=== PATIENT | male | born 1950 | race Caucasian/White ===

== ENCOUNTER 2019-11-27 13:56 | Inpatient (IN) | payer MEDICAID ==
[~2019-11-27] VITALS: Ht 167.6 cm; Wt 75.3 kg
--- NOTE | 2019-11-27 14:27 | NUR ---
Patient to ER bed 04 to gown for evaluation. Side rails up.
--- NOTE | 2019-11-27 14:28 | NUR ---
Patient brought in by ambulance from [facility] to the ED d/t abnormal labs. Denied any chest pain or shortness of breath. Denied fevers, chills, nausea, or vomiting. Patient is alert and oriented x2, respirations even and unlabored, speaking in full sentences, and ambulating with a steady gait. VSS, pain level 0/10. Informed of approximate wait time. Instructed to notify ED staff for any changes in condition or worsening of symptoms. Patient verbalized understanding.
--- NOTE | 2019-11-27 14:30 | NUR ---
ER Dr. Vinson at bedside giving discharge instructions to the patient.
[2019-11-27] MEDS ORDERED: NACL 0.9% 1,000 ML IV ONE (14:45)
[2019-11-27 16:12] LABS: BASOPHILS % (AUTO) 0.1 % (0.0-2.0); EOSINOPHILS # (AUTO) 0.1 K/uL (0.0-0.4); EOSINOPHILS % (AUTO) 0.3 % (0.0-4.0); HEMATOCRIT 28.9 % (36-54); HEMOGLOBIN 9.5 g/dL (14.0-18.0); LYMPHOCYTES # (AUTO) 1.8 K/uL (1.0-5.5); LYMPHOCYTES % (AUTO) 8.7 % (20.5-51.5); MEAN CORPUSCULAR HEMOGLOBIN 30 pg (27-31); MEAN CORPUSCULAR HGB CONC 33 % (32-36); MEAN CORPUSCULAR VOLUME 91 fL (79.0-98.0); MONOCYTES % (AUTO) 9.5 % (1.7-9.3); PLATELET COUNT (AUTO) 590 K/uL (130-430); RED BLOOD CELL COUNT(AUTO) 3.19 MIL/uL (4.2-6.2); RED CELL DISTRIBUTION WIDTH 16.2 % (9.0-15.0); WHITE BLOOD COUNT (AUTO) 20.9 K/uL (4.8-10.8)
[2019-11-27 16:24] LABS: CALCIUM 8.7 mg/dL (8.4-11.0); CREATININE 0.97 mg/dL (0.55-1.30); POTASSIUM 4.1 mmol/L (3.5-5.1)
[2019-11-27 16:30] LABS: ALBUMIN 1.7 g/dL (3.4-4.8); INR 1.7 (0.80-1.20); PROTHROMBIN TIME 16.9 SECS (9.5-12.5); TOTAL BILIRUBIN 0.5 mg/dL (0.0-1.0)
[2019-11-27 16:41] LABS: NEUTROPHILS % (AUTO) 81.4 % (40.0-70.0)
--- NOTE | 2019-11-27 16:41 | NUR ---
# 20 gauge angiocath placed to Right IJ ultrasound-guided by Dr. Vinson. Use of asceptic technique. Opsite placed over site. Blood return noted. Flushed with 10 cc of normal saline. No evidence of infiltration noted. Patient tolerated well.
[2019-11-27] MEDS ORDERED: cefTRIAXone 1 GM in D5W 50 ML IV ONE (16:45)
--- NOTE | 2019-11-27 16:50 | NUR ---
# 16 FR In and Out catheter with use of sterile technique. Immediate return of 60 ml dark yellow slightly cloudy urine noted. Urine sample collected and sent to lab. Pt tolerated procedure well. Patient unable to toilet self.
--- NOTE | 2019-11-27 16:51 | NUR ---
ECG done at bedside as ordered by Dr. Vinson. Patient tolerated the procedure well. Report given to
--- NOTE | 2019-11-27 16:57 | NUR ---
Urine specimen collected and dropped off at the lab.
[2019-11-27 17:22] LABS: BILIRUBIN,URINE NEGATIVE (NEGATIVE); BLOOD, URINE 3+ (NEGATIVE); CLARITY/URINE CLOUDY (CLEAR); COLOR,URINE ORANGE (YELLOW); GLUCOSE,URINE NEGATIVE (NEGATIVE); KETONES,URINE NEGATIVE (NEGATIVE); LEUKOCYTE ESTERASE ,URINE 3+ (NEGATIVE); NITRITE, URINE POSITIVE (NEGATIVE); PH,URINE 8.5 (5.0-8.0); PROTEIN URINE 3+ (NEGATIVE)
--- NOTE | 2019-11-27 17:27 | NUR ---
Administered Rocephine 1gm IVPB as ordered by Dr. Vinson. Patient tolerated the medications well. See eMAR for details.
[2019-11-27] MEDS ORDERED: cefTRIAXone 1 GM VIAL ONE (17:32)
--- NOTE | 2019-11-27 17:45 | NUR ---
Received admitting orders from Dr. Aguila.
[2019-11-27] MEDS ORDERED: POTA20TA83 PO (18:10)
[2019-11-27] MEDS ORDERED: MULT-1117 PO (18:10)
[2019-11-27] MEDS ORDERED: THIA100T73 PO (18:10)
[2019-11-27] MEDS ORDERED: MOM PO (18:10)
[2019-11-27] MEDS ORDERED: BISA-79 RC (18:10)
[2019-11-27] MEDS ORDERED: PHEN-726 PO (18:10)
[2019-11-27] MEDS ORDERED: OSCD500 PO (18:10)
[2019-11-27] MEDS ORDERED: LIP40 PO (18:10)
[2019-11-27] MEDS ORDERED: FER300L PO (18:10)
[2019-11-27] MEDS ORDERED: ASCO500C18 PO (18:10)
[2019-11-27] MEDS ORDERED: FLEETMO RC (18:10)
[2019-11-27] MEDS ORDERED: METO50TA7 PO (18:10)
[2019-11-27] MEDS ORDERED: ASPI-1153 PO (18:10)
[2019-11-27] MEDS ORDERED: MIRT15TA7 PO (18:10)
[2019-11-27] MEDS ORDERED: PRO40 PO (18:10)
[2019-11-27] MEDS ORDERED: AMIN30LI2 PO (18:10)
[2019-11-27] MEDS ORDERED: QUET25TA34 PO (18:10)
[2019-11-27] MEDS ORDERED: LEVE500T9 PO (18:10)
[2019-11-27] MEDS ORDERED: RIVA10TA PO (18:10)
[2019-11-27] MEDS ORDERED: BISA-79 PO (18:10)
--- NOTE | 2019-11-27 18:12 | NUR ---
Reconciled meds. Belonging's list done.
[2019-11-27 18:13] LABS: BACTERIA,URINE FEW /HPF (None Seen); RBC,URINE 20-50 /HPF (0-3)
[2019-11-27 18:14] LABS: MUCUS,URINE None Seen /LPF (None Seen)
--- NOTE | 2019-11-27 18:25 | NUR ---
Patient will be admitted to care of Dr. Aguila. Admitted to Medsurg unit. Will go to room 125A. Belongings list completed. Complete and up to date summary report printed. SBAR report given to HENRY Urias over the phone with opportunity for questions.
--- NOTE | 2019-11-27 18:30 | NUR ---
ADMISSION NOTE Received patient from ER via ivanna, received report from PALMA FIGUEROA. Patient admitted with diagnosis of SEPSIS/UTI. Patient oriented to hospital routine, call light, toileting and safety-patient verbalized understanding.
[2019-11-27 18:46] VITALS: BP_SYST 100
--- NOTE | 2019-11-27 19:30 | NUR ---
OPENING NOTE RECEIVED CARE OF PT AND SBAR REPORT. PT IS AAOX1, TO PERSON. PT ABLE TO VERBALIZE NEEDS IN [place]. NO S/S OF ACUTE DISTRESS. BREATHING IS UNLABORED TO ROOM AIR. RIGHT IJ IS IN PLACE AND PATENT. PT DENIES PAIN AT THIS TIME. SAFETY AND FALL PRECAUTIONS ARE IN PLACE: BED IS LOCKED IN LOWEST POSITION, SIDE RAILS UP X3, CALL LIGHT IS WITH PT, BED ALARM ON. WILL MONITOR.
[2019-11-27 20:00] VITALS: BP_SYST 102
[2019-11-27] MEDS ORDERED: MINERAL OIL 133 ML ENEMA RC PRN (21:45)
[2019-11-27] MEDS ORDERED: BISACODYL 5 MG TABLET.DR (DULCOLAX) PO PRN (21:45)
[2019-11-27] MEDS ORDERED: MILK OF MAGNESIA 30 ML UDC PO PRN (21:45)
--- NOTE | 2019-11-27 21:47 | NUR ---
PAGED: PAGED ANSWERING SERVICE FOR DR. DWYER I SPOKE WITH KAREN CONTRERAS REASON FOR THIS CALL WAS TO SEND A MESSAGE TO DR. DWYER THAT DR. ANDERSON GAVE ORDERS. ANSLEY FIGUEROA IN CHARGE OF THIS PATIENT SPOKE WITH DR. JUSTIN ANDERSON GAVE ORDERS FOR MR. VELEZ BO. DR. ANDERSON SAID THAT HE IS COVERING DR. DWYER FOR A COUPLE OF HOURS
--- NOTE | 2019-11-27 21:53 | NUR ---
SPOKE TO DR. ANDERSON NEW ORDERS RECEIVED. WILL CARRY OUT.
[2019-11-27 22:00] VITALS: BP_SYST 116
[2019-11-27] MEDS ORDERED: MORPHINE 4 MG/ML INJ. SYRINGE IVP PRN (22:00)
[2019-11-27] MEDS ORDERED: ACETAMINOPHEN 325 MG TABLET PO PRN (22:00)
[2019-11-27] MEDS ORDERED: ONDANSETRON HCL 4 MG/2 ML VIAL IVP PRN (22:00)
[2019-11-27] MEDS: levETIRAcetam 500 MG TABLET PO SCH (23:36)
--- NOTE | 2019-11-27 23:36 | NUR ---
RADHA SCHEDULED RADHA ADMINISTERED. PT TOOK PILL WITH NO PROBLEM.
[2019-11-28] MEDS: HYDROcodone/ACETAMIN 5-325 MG TAB (NORCO/ VICODIN) PO PRN ×3 (00:44→23:08)
--- NOTE | 2019-11-28 00:44 | NUR ---
PAIN/NORCO PT REPORTING MODERATE MOUTH PAIN. NORCO 5-325 MG PO ADMINISTERED ORDERED PRN. MEDICATION AND POTENTIAL SIDE EFFECTS EXPLAINED TO PT. NO S/S OF ACUTE DISTRESS. SAFETY MAINTAINED. WILL MONITOR.
[2019-11-28 02:03] VITALS: BP_SYST 111
--- NOTE | 2019-11-28 04:15 | NUR ---
SLEEPING PT RESTING IN BED WITH EYES CLOSED, APPEARS TO BE SLEEPING. NO S/S OF ACUTE DISTRESS. VISIBLE SYMMETRICAL RISE AND FALL OF CHEST TO ROOM AIR, NO SOB NOTED. NO SIGN OF PAIN OR DISCOMFORT, NO FACIAL GRIMACE. SAFETY PRECAUTIONS ARE IN PLACE. WILL CONT TO MONITOR.
--- NOTE | 2019-11-28 06:01 | NUR ---
INCONTINENCE CARE PT INCONTINENT OF BOWELS AND BLADDER. INCONTINENCE CARE RENDERED WITH ASSISTANCE FROM WILLIAM JACKSON. PT REPOSITIONED FOR COMFORT. PT GIVEN WATER PER REQUEST. ASPIRATION PRECAUTIONS IN PLACE. NO S/S OF ACUTE DISTRESS. SAFETY PRECAUTIONS ARE IN PLACE. WILL MONITOR.
--- NOTE | 2019-11-28 06:29 | NUR ---
CLOSING NOTE PT IS AWAKE AND CONFUSED. PT ABLE TO VERBALIZE NEEDS IN [place]. NO S/S OF ACUTE DISTRESS. BREATHING IS UNLABORED TO ROOM AIR. RIGHT IJ IS IN PLACE AND PATENT. PT DENIES PAIN AT THIS TIME. SAFETY AND FALL PRECAUTIONS ARE IN PLACE: BED IS LOCKED IN LOWEST POSITION, SIDE RAILS UP X3, CALL LIGHT IS WITH PT, BED ALARM ON. WILL ENDORSE TO DAY SHIFT RN.
[2019-11-28] MEDS ORDERED: MINERAL OIL 133 ML ENEMA RC PRN (07:18)
--- NOTE | 2019-11-28 08:00 | NUR ---
received awake and in no c/o discomfort.vss resp even and unlabored.on ra sats 97%.malay speaking mainly but able to make needs known.incontinent of urine and changed and repositioned.set up for breakfast.continue to monitor call ramírez in place
[2019-11-28] MEDS: FERROUS SULFATE 300 MG/5 ML UDC PO SCH ×2 (08:26→20:58)
[2019-11-28] MEDS: MULTIVITAMINS TAB 1 TABLET PO SCH (08:26)
[2019-11-28] MEDS: ASPIRIN 81 MG TABLET(ECOTRIN) PO SCH (08:27)
[2019-11-28] MEDS: ASCORBIC ACID 500 MG TABLET PO SCH (08:27)
[2019-11-28] MEDS: POTASSIUM CHLORIDE 20 MEQ TAB.PRT.SR PO SCH ×2 (08:27→20:58)
[2019-11-28] MEDS: CALCIUM CARBONATE/VITAMIN D3 1 TAB TABLET PO SCH (08:27)
[2019-11-28] MEDS: THIAMINE HCL 100 MG TABLET PO SCH (08:27)
[2019-11-28] MEDS: METOPROLOL SUCCINATE 50 MG TAB.SR.24H (TOPROL XL) PO SCH (08:28)
[2019-11-28] MEDS: PANTOPRAZOLE SODIUM 40 MG TAB PO SCH (08:28)
[2019-11-28] MEDS: ATORVASTATIN 20 MG TABLET PO SCH (08:28)
[2019-11-28] MEDS: levETIRAcetam 500 MG TABLET PO SCH ×2 (08:33→20:58)
--- NOTE | 2019-11-28 08:47 | NUR ---
Nutrition Update Jackson Scale 14 noted. Pt admitted for sepsis, UTI. Diet: regular BMI: 28.1 kg/m2 RD to follow per nutrition care standards.
[2019-11-28] MEDS ORDERED: CALCIUM CARBONATE/VITAMIN D3 1 TAB TABLET PO SCH (09:00)
[2019-11-28] MEDS ORDERED: RIVAROXABAN 10 MG TABLET PO SCH (09:00)
[2019-11-28 12:46] VITALS: BP_SYST 100
[2019-11-28] MEDS ORDERED: PHENAZOPYRIDINE HCL 100 MG TABLET PO ONE (13:00)
[2019-11-28] MEDS ORDERED: BISACODYL 5 MG TABLET.DR (DULCOLAX) PO SCH (14:30)
--- NOTE | 2019-11-28 14:45 | NUR ---
CONSULTATION PAGED REQUESTING MD: DR. DWYER CONSULTING MD: Claudia JOHNSON REASON: SEPSIS SPOKE WITH: BINA [phone] FAXED FACESHEET TO: [phone]
--- NOTE | 2019-11-28 15:00 | NUR ---
received lab call bld cx results gram cocci clusters and dr chidi hamilton.pt remains in no distress and repositioned in bed q2h.made aware needs urine sample for test and explained will cath if cant get.call ramírez in place continue to monitor
--- NOTE | 2019-11-28 15:28 | NUR ---
PAGED DR. DWYER
[2019-11-28 16:00] VITALS: BP_SYST 106
[2019-11-28] MEDS ORDERED: VANCOMYCIN HCL 1 GM/NS PREMIX 250 ML IV ONE (16:30)
[2019-11-28] MEDS: cefTRIAXone 1 GM in D5W 50 ML IV SCH (16:51)
--- NOTE | 2019-11-28 17:47 | NUR ---
order received for abx to start vanco and given.pt remains in no c/o discomfort vss.taking diet well.resp even and unlabored.continue to monitor.
[2019-11-28] MEDS: WARFARIN SODIUM 5 MG TABLET PO SCH (18:08)
--- NOTE | 2019-11-28 19:12 | NUR ---
report to second shift supervisor rn given
--- NOTE | 2019-11-28 19:30 | NUR ---
OPENING NOTE PT IS AWAKE AND CONFUSED. PT ABLE TO VERBALIZE NEEDS IN [place]. NO S/S OF ACUTE DISTRESS. BREATHING IS UNLABORED TO ROOM AIR. PT DENIES PAIN AT THIS TIME. SAFETY AND FALL PRECAUTIONS ARE IN PLACE: BED IS LOCKED IN LOWEST POSITION, SIDE RAILS UP X3, CALL LIGHT IS WITH PT, BED ALARM ON. WILL CONTINUE TO MONITOR.
[2019-11-28 20:00] VITALS: BP_SYST 112
[2019-11-28] MEDS: QUEtiapine FUMARATE 25 MG TABLET PO SCH (20:58)
[2019-11-28] MEDS: PHENAZOPYRIDINE HCL 100 MG TABLET PO SCH (20:58)
[2019-11-28] MEDS: MIRTAZAPINE 15 MG TABLET PO SCH (20:58)
--- NOTE | 2019-11-28 21:00 | NUR ---
MED PASS SCHEDULED MEDICATIONS GIVEN ORDERED. PT TOOK PILLS WITH NO PROBLEMS. ASPIRATION PRECAUTIONS MAINTAINED. WILL MONITOR.
--- NOTE | 2019-11-28 23:08 | NUR ---
PAIN/NORCO PT REPORTING MODERATE LEG PAIN. NORCO 5-325 MG PO ADMINISTERED ORDERED PRN. MEDICATION AND POTENTIAL SIDE EFFECTS EXPLAINED TO PT. NO S/S OF ACUTE DISTRESS. SAFETY MAINTAINED. WILL MONITOR.
[2019-11-29 00:56] VITALS: BP_SYST 114
--- NOTE | 2019-11-29 02:30 | NUR ---
SLEEPING PT RESTING IN BED WITH EYES CLOSED. NO S/S OF ACUTE DISTRESS. VISIBLE SYMMETRICAL RISE AND FALL OF CHEST TO ROOM AIR, NO SOB NOTED. NO SIGN OF PAIN OR DISCOMFORT, NO FACIAL GRIMACE. SAFETY PRECAUTIONS ARE IN PLACE. WILL CONT TO MONITOR.
--- NOTE | 2019-11-29 04:13 | NUR ---
WOUND CARE WOUND CARE DONE. PT TOLERATED WELL.
[2019-11-29 06:27] LABS: INR 1.7 (0.80-1.20); PROTHROMBIN TIME 16.8 SECS (9.5-12.5)
[2019-11-29 06:30] LABS: ALBUMIN 1.5 g/dL (3.4-4.8); CALCIUM 8.5 mg/dL (8.4-11.0); CREATININE 0.84 mg/dL (0.55-1.30); POTASSIUM 3.7 mmol/L (3.5-5.1); TOTAL BILIRUBIN 0.4 mg/dL (0.0-1.0)
[2019-11-29 06:55] LABS: HEMOGLOBIN 8.4 g/dL (14.0-18.0); MEAN CORPUSCULAR HEMOGLOBIN 30 pg (27-31)
--- NOTE | 2019-11-29 06:58 | NUR ---
CLOSING NOTE PT IS AWAKE AND CONFUSED. PT ABLE TO VERBALIZE NEEDS IN [place]. NO S/S OF ACUTE DISTRESS. BREATHING IS UNLABORED TO ROOM AIR. RIGHT IJ IS IN PLACE AND PATENT. PT DENIES PAIN AT THIS TIME. SAFETY AND FALL PRECAUTIONS ARE IN PLACE: BED IS LOCKED IN LOWEST POSITION, SIDE RAILS UP X3, CALL LIGHT IS WITH PT, BED ALARM ON. WILL ENDORSE TO DAY SHIFT RN.
[2019-11-29 07:07] LABS: HEMATOCRIT 25.8 % (36-54); MEAN CORPUSCULAR HGB CONC 32 % (32-36); MEAN CORPUSCULAR VOLUME 92 fL (79.0-98.0); PLATELET COUNT (AUTO) 525 K/uL (130-430); RED BLOOD CELL COUNT(AUTO) 2.82 MIL/uL (4.2-6.2); WHITE BLOOD COUNT (AUTO) 18.4 K/uL (4.8-10.8)
[2019-11-29 07:32] LABS: ATYPICAL LYMPHOCYTES % 0 % (0-0); BAND % (MANUAL) 0 % (0-6); BASOPHILS % (MANUAL) 0 % (0-2); EOSINOPHILS % (MANUAL) 0 % (0-7); FREE T4 (FREE THYROXINE) 1.5 ng/dl (0.8-1.5); LYMPHOCYTES % (MANUAL) 10 % (20-46); MONOCYTES % (MANUAL) 5 % (0-11); THYROID STIMULATING HORMONE 3.23 uIu/mL (0.36-3.74)
--- NOTE | 2019-11-29 08:00 | NUR ---
AWAKE ALERT U\PULLED IJ LINE RIGHT NECK
[2019-11-29] MEDS: THIAMINE HCL 100 MG TABLET PO SCH (09:08)
[2019-11-29] MEDS: CALCIUM CARBONATE/VITAMIN D3 1 TAB TABLET PO SCH (09:09)
[2019-11-29] MEDS: FERROUS SULFATE 300 MG/5 ML UDC PO SCH ×2 (09:09→20:53)
[2019-11-29] MEDS: AZITHROMYCIN 250 MG TABLET PO SCH (09:09)
[2019-11-29] MEDS: levETIRAcetam 500 MG TABLET PO SCH ×2 (09:09→20:53)
[2019-11-29] MEDS: METOPROLOL SUCCINATE 50 MG TAB.SR.24H (TOPROL XL) PO SCH (09:10)
[2019-11-29] MEDS: MULTIVITAMINS TAB 1 TABLET PO SCH (09:10)
[2019-11-29] MEDS: ASCORBIC ACID 500 MG TABLET PO SCH (09:10)
[2019-11-29] MEDS: POTASSIUM CHLORIDE 20 MEQ TAB.PRT.SR PO SCH ×2 (09:10→20:53)
[2019-11-29] MEDS: ATORVASTATIN 20 MG TABLET PO SCH (09:11)
[2019-11-29] MEDS: ASPIRIN 81 MG TABLET(ECOTRIN) PO SCH (09:11)
[2019-11-29] MEDS: PANTOPRAZOLE SODIUM 40 MG TAB PO SCH (09:11)
[2019-11-29] MEDS: PHENAZOPYRIDINE HCL 100 MG TABLET PO SCH ×2 (09:12→20:52)
--- NOTE | 2019-11-29 10:00 | NUR ---
SEEN BY DR. DWYER AND DR. LLOYD WITH ORDERS TO PUT PICK LINE
[2019-11-29] MEDS ORDERED: VANCOMYCIN HCL 1,000 MG in NS 250 ML IV SCH (11:30)
--- NOTE | 2019-11-29 12:00 | NUR ---
DR. LLOYD WITH ORDERS TO PUT CENTRAL LINE NOT A PICC LINE DUE TO POSITIVE COCCI IN THE BLOOD
--- NOTE | 2019-11-29 12:00 | NUR ---
Discharge Plan Assessment completed. RAIL SWITCH OPERATOR noted patient is Serbian speaking and confused. Phoned [facility], . Patient has been there about one month and the plan is for patient to return. Phoned rachel's sister, Olga Mariscal [phone]. She stated the plan is for patient to return to the SNF and would like to be notified prior to transfer. Gis Software Engineer/Case Management/Automatic Trimming Sewer will remain available.
[2019-11-29 12:24] VITALS: BP_SYST 97
--- NOTE | 2019-11-29 12:30 | NUR ---
WOUND EVALUATION: Wound Consult received from Dr. Louis. Thank you, Dr. Louis, for the consult. Patient received in a Daina Bed with a mattress, awake, alert, and oriented. Patient is unable to turn independently. Jackson Score is a 14. Past Medical History: Peripheral Vascular Disease, Acute Respiratory Failure, CHF, COPD with exacerbation, Atrial Fibrillation, CAD, Hypertension, Diabetes Mellitus, history of Alcohol abuse, stent surgery. Recent Labs: WBC 18.4, RBC 2.82, hemoglobin 8.4, hematocrit 25.8, sodium 126, BUN 21, creatinine 0.8, GFR 97, AST 82, ALT 88, alkaline phosphatase 253, albumin 1.5, PT 16.8, INR 1.7. Microbiology: Blood culture results 4 in progress. MRSA screen results in progress. Urine culture results in progress. Intrinsic factors that delay wound healing: Peripheral Vascular Disease, Acute Respiratory Failure, CHF, COPD with exacerbation, CAD, Diabetes Mellitus. Extrinsic factors that delay wound healing: Decreased mobility. Wound Assessment: 1. Right Buttock near Ischium: Unstageable pressure ulcer, present on admission. Wound bed has 90% johnson tissue, 10% pink tissue. No odor, no drainage. Periwound and surrounding tissue has brown scaly skin. Inferior to wound has linear black discolorations in the skin folds. Wound measures 1.0 cm x 1.0 cm x 0.1 cm. Recommend: Cleanse wound with normal saline. Apply moisture barrier cream to niyah-wound. Apply Venelex ointment to wound bed. Cover with foam dressing. Perform wound care daily, and as needed for dressing soiling or dislodgement. 2. Right Mid Lateral Lower Extremity: Unstageable pressure ulcer, present on admission. Wound bed has 85% yellow tissue, 15% pink tissue. No odor, scant yellow purulent drainage. Periwound and surrounding tissue has brown scaly skin and scar tissue. Wound measures 8.0 cm x 2.8 cm. 3. Right Lateral Foot: Unstageable pressure ulcer, present on admission. Wound bed has 100% brown eschar. No odor, scant yellow purulent drainage. Periwound intact. Extremity also has dark discoloration with white discoloration. Multiple dry scabs present on extremity. Wound measures 1.2 cm x 3.0 cm. Recommend: Cleanse wounds with normal saline. Apply moisture barrier cream to niyah-wounds. Apply Venelex ointment to wound beds. Cover with foam dressings. Perform wound care daily, and as needed for dressing soiling or dislodgement. 4. Left Lateral Foot: Blanchable erythema, present on admission. Extremity also has dark discoloration with white discoloration. Multiple dry scabs present on extremity 5. Left Lateral Heel: Blanchable erythema, present on admission. Extremity also has dark discoloration with white discoloration. Multiple dry scabs present on extremity Recommend: Elevate, offload and float involved areas with pillows at all times. Also recommend: Reposition patient side to side only every 2 hours with pillow support and off-load pressure areas with pillows for pressure re-distribution. Offload, elevate and float bilateral heels with pillows. Place a pillow in between knees and ankles. Perform skin care and monitor skin integrity Q shift. Use moisture barrier cream on buttocks and other moisture susceptible areas QID and as needed for soiling. Low air-loss therapy was initiated.
[2019-11-29 15:18] LABS: INR 2.3 (0.80-1.20); PROTHROMBIN TIME 22.9 SECS (9.5-12.5)
[2019-11-29 15:52] VITALS: BP_SYST 136
--- NOTE | 2019-11-29 16:11 | NUR ---
Dietitian Recommendations * Recommend regular diet w/ Ensure Enlive BID, Panfilo BID (supplements provide an additional ~880 kcal/day, 45 gm protein/day) TAVIA MASON Please refer to Nutrition Assessment for details. Addendum: 11/29/19 at [address] Amended: Links added.
--- NOTE | 2019-11-29 16:16 | NUR ---
AWAKE ALERT ASKING FOR DINNER
[2019-11-29 16:17] VITALS: BP_SYST 105
--- NOTE | 2019-11-29 16:29 | NUR ---
GABINO LOUISE WANTS A CENTRAL LINE INSTEAD OF PICC OR MIDLINE DR. AGARWAL WAS CALLED
--- NOTE | 2019-11-29 16:30 | NUR ---
CONSULTATION PAGED/CALLED Reason for Consultation: [] CENTRAL LINE PLACEMENT Person Who was Notified: [] GUSTAVO Consulting Physician: [] DR AGARWAL Account Review Specialist Specialty: [] GEN SURGEON Ordering Physician: [] DR CHRISTO LLOYD
--- NOTE | 2019-11-29 17:35 | NUR ---
CONSULTATION PAGED/CALLED Reason for Consultation: [] CENTRAL LINE PLACEMENT Person Who was Notified: [] ERIN Consulting Physician: [] LIVIA ANDUJAR Lubricating Engineer Specialty: [] GENERAL SURGEON Ordering Physician: [] DR CHRISTO LLOYD
[2019-11-29] MEDS: WARFARIN SODIUM 5 MG TABLET PO SCH (17:41)
--- NOTE | 2019-11-29 17:50 | NUR ---
DR. AGARWAL CALLED NOT ABLE TO PUT CENTRAL LINE MD NICHOLE CALLED PER DR. AGARWAL
--- NOTE | 2019-11-29 19:20 | NUR ---
OPENING NOTE Received patient awake, resting in bed, no s/sx of distress. Nonlabored breathing on room air. No IV access. Bed is locked in lowest position, side rails up 3x, bed alarm on and call light w/in reach.
[2019-11-29 20:00] VITALS: BP_SYST 114
--- NOTE | 2019-11-29 20:16 | NUR ---
Fever Vital signs taken and patient has fever of 100.2 oral will administered Tylenol as ordered.
[2019-11-29] MEDS: QUEtiapine FUMARATE 25 MG TABLET PO SCH (20:52)
[2019-11-29] MEDS: MIRTAZAPINE 15 MG TABLET PO SCH (20:53)
--- NOTE | 2019-11-29 21:07 | NUR ---
Medications / Tylenol Assisted nurse retail assistant in providing bed bath and linen change. Administered due medications and also Tylenol for fever. Medications were crushed and mixed in applesauce, he was cooperative and swallowed. Applied cooling measures, ice packs, under arms, will follow up.
--- NOTE | 2019-11-29 21:56 | NUR ---
Reassess temp Rechecked oral temp and it decreased to 99.7.
[2019-11-29 23:36] VITALS: BP_SYST 116
--- NOTE | 2019-11-30 00:23 | NUR ---
RN rounds Patient resting w/ eyes closed; easily aroused. He was turned and repositioned for comfort. Safety and seizure precuations in place.
[2019-11-30] MEDS: VANCOMYCIN HCL 1,000 MG in NS 250 ML IV SCH ×2 (01:00→01:39)
[2019-11-30] MEDS: cefTRIAXone 1 GM in D5W 50 ML IV SCH ×2 (01:41→18:44)
--- NOTE | 2019-11-30 02:10 | NUR ---
RN rounds Patient resting w/ eyes closed, no s/sx of distress. He was turned and repositioned for comfort. Safety and seizure precautions in place, call light w/in reach.
--- NOTE | 2019-11-30 04:15 | NUR ---
Patient care / Dressing change Patient resting quietly w/ eyes closed, no grimacing or s/sx of distress. Assisted nurse occupational therapist assistants with niyah-care. Patient turned and repositioned. Patient did not state he had pain. I was planning on dressing change and asked him do you have pain and then he replied "yes everywhere". Administered [place] for moderate pain as ordered. Dressing change to right lower extremity, right foot and right heel done (see MST intervention charting).
[2019-11-30] MEDS: HYDROcodone/ACETAMIN 5-325 MG TAB (NORCO/ VICODIN) PO PRN ×2 (04:31→11:27)
[2019-11-30 06:45] LABS: PROTHROMBIN TIME 43.5 SECS (9.5-12.5)
[2019-11-30 06:46] LABS: INR 4.4 (0.80-1.20)
--- NOTE | 2019-11-30 07:04 | NUR ---
Critical Lab: elevated PT/INR Received call from Sherly supervisor dental laboratory. PT 43.5, INR 4.[address] Louis. awaiting call back.
--- NOTE | 2019-11-30 07:06 | NUR ---
Closing Note Patient resting in bed, eyes closed, no s/sx of distress. Nonlabored breathing on room air. No IV access. Bed is locked in lowest position, side rails up 3x, bed alarm on and call light w/in reach. Seizure precautions maintained. Needs met throughout shift, will endorse care to incoming nurse.
[2019-11-30 08:00] VITALS: BP_SYST 95
--- NOTE | 2019-11-30 08:00 | NUR ---
initial notes rec patient awake and with periods of confusion. no iv line at this time. resp easy and unlabored. no osb noted. bed to the lowest position and side rails up and locked. call light within reached. awaiting for picc line nurse to start picc line or mid line on patient.
[2019-11-30] MEDS ORDERED: VANCOMYCIN HCL 1,000 MG in NS 250 ML IV SCH (10:00)
[2019-11-30] MEDS: POTASSIUM CHLORIDE 20 MEQ TAB.PRT.SR PO SCH ×3 (11:08→21:33)
[2019-11-30] MEDS: ASCORBIC ACID 500 MG TABLET PO SCH (11:08)
[2019-11-30] MEDS: AZITHROMYCIN 250 MG TABLET PO SCH (11:09)
[2019-11-30] MEDS: levETIRAcetam 500 MG TABLET PO SCH ×3 (11:09→21:27)
[2019-11-30] MEDS: CALCIUM CARBONATE/VITAMIN D3 1 TAB TABLET PO SCH (11:09)
[2019-11-30] MEDS: ASPIRIN 81 MG TABLET(ECOTRIN) PO SCH (11:09)
[2019-11-30] MEDS: PANTOPRAZOLE SODIUM 40 MG TAB PO SCH (11:09)
[2019-11-30] MEDS: THIAMINE HCL 100 MG TABLET PO SCH (11:09)
[2019-11-30] MEDS: METOPROLOL SUCCINATE 50 MG TAB.SR.24H (TOPROL XL) PO SCH (11:12)
[2019-11-30] MEDS: FERROUS SULFATE 300 MG/5 ML UDC PO SCH ×3 (11:13→21:27)
[2019-11-30] MEDS: ATORVASTATIN 20 MG TABLET PO SCH (11:13)
[2019-11-30] MEDS: PHENAZOPYRIDINE HCL 100 MG TABLET PO SCH ×3 (11:24→21:33)
[2019-11-30] MEDS: BALSAM PERU/CASTOR OIL 60 GM OINT...G. TP SCH (11:24)
[2019-11-30] MEDS: MULTIVITAMINS TAB 1 TABLET PO SCH (11:24)
--- NOTE | 2019-11-30 12:00 | NUR ---
rounds due meds were given crushed and given with apple sauce. no sob noted.
--- NOTE | 2019-11-30 12:00 | NUR ---
rounds picc line nurse came and was able to insert a midline on the r upper arm. no infiltration noted. no sob noted.
[2019-11-30 12:18] VITALS: BP_SYST 95
[2019-11-30] MEDS ORDERED: OSCD500 PO (12:24)
[2019-11-30] MEDS ORDERED: CALC-1094 PO (12:29)
--- NOTE | 2019-11-30 15:32 | NUR ---
Spoke to Dr. Prosper Acosta regarding urine culture MDRO/PROTEUS MIRABILIS urine no need for isolation
[2019-11-30 16:09] VITALS: BP_SYST 98
--- NOTE | 2019-11-30 18:00 | NUR ---
closing notes sleeping at this time. no sob noted. iv abx in porgress and michelle well. turned repositioned for comfort. call light within reached. bed to the lowest position and side rails up and locked. call light withn reached.
--- NOTE | 2019-11-30 19:10 | NUR ---
CHANGE OF SHIFT; pt. asleep when received, awakened when checked, denies any discomfort, speaks little mohawk, otherwise speaks french. pt dinner tray at bedside, offered to eat and does not want to eat at this time. on fall risk precautions. call light within reach. no distress noted.
[2019-11-30 20:00] VITALS: BP_SYST 99
--- NOTE | 2019-11-30 20:00 | NUR ---
NOTES; pt. left via bed for CT scan of abdomen. pt. quite disoriented and confused.
--- NOTE | 2019-11-30 20:30 | NUR ---
NOTES: pt. came back from CT scan in stable condition.
[2019-11-30] MEDS: QUEtiapine FUMARATE 25 MG TABLET PO SCH ×2 (21:00→21:27)
[2019-11-30] MEDS: MIRTAZAPINE 15 MG TABLET PO SCH ×2 (21:00→21:27)
--- NOTE | 2019-11-30 22:00 | NUR ---
NOTES; prepared his medications scheduled, crushed it as endorsed but refused to take it . pt. keeps talking and his room mate has complained about the noise.
--- NOTE | 2019-11-30 22:25 | NUR ---
NOTES: called Dr. Louis, informed about result on blood culture for Gm Pos cocci, pt. refused all po meds scheduled and Vancomycin needs adjustment on time since it was given late today @ 4 pm (schedule every 12 hours). OK to change time on IV Vancomycin. Addendum: 11/30/19 at [address] RN charge nurse Mikie pelayo.
--- NOTE | 2019-11-30 23:58 | NUR ---
NOTES: pt. checked, sleeping. continue to monitor. on fall risk precautions.
[2019-12-01 00:32] VITALS: BP_SYST 109
--- NOTE | 2019-12-01 02:00 | NUR ---
NOTES: pt. incontinent of urine, niyah care and repositioned. condition observed.
[2019-12-01] MEDS: VANCOMYCIN HCL 1,000 MG in NS 250 ML IV SCH ×2 (04:15→18:12)
--- NOTE | 2019-12-01 04:15 | NUR ---
NOTES: due IV antibiotic started and regulated. pt. sleeping soundly. continue to monitor.
--- NOTE | 2019-12-01 05:45 | NUR ---
NOTES: due am care/niyah care done, pt. incontinent. went back to sleep after. IV antibiotic still in progress.
[2019-12-01 06:27] LABS: INR 6.9 (0.80-1.20); PROTHROMBIN TIME 67.4 SECS (9.5-12.5)
--- NOTE | 2019-12-01 06:45 | NUR ---
CLOSING NOTES; lab called for critical result of PT/INR @ 0625 , result called in to Dr. Louis @ 0639 with order and noted. for further care and assistance. on fall risk precautions. call ight at bedside. will endorse to day shift.
[2019-12-01] MEDS ORDERED: PHYTONADIONE 10 MG/ML AMP SUBCUT ONE (07:00)
--- NOTE | 2019-12-01 07:32 | NUR ---
OPENING NOTE Patient resting in the bed with eyes closed. No acute distress. Skin warm and dry to touch. Midline intact to SUSANA, no redness, no swelling, covered with clean and dry transparent dressing. Safety measure maintained. Bed locked in low position, padded side rails up, bed alarm on. Call light within reached. Will continue to monitor.
[2019-12-01 07:45] VITALS: BP_SYST 115
[2019-12-01] MEDS: AZITHROMYCIN 250 MG TABLET PO SCH (08:24)
[2019-12-01] MEDS: PANTOPRAZOLE SODIUM 40 MG TAB PO SCH (08:24)
[2019-12-01] MEDS: FERROUS SULFATE 300 MG/5 ML UDC PO SCH ×2 (08:24→23:06)
[2019-12-01] MEDS: levETIRAcetam 500 MG TABLET PO SCH ×2 (08:24→23:05)
[2019-12-01] MEDS: ASPIRIN 81 MG TABLET(ECOTRIN) PO SCH (08:24)
[2019-12-01] MEDS: POTASSIUM CHLORIDE 20 MEQ TAB.PRT.SR PO SCH ×2 (08:26→23:06)
[2019-12-01] MEDS: CALCIUM CARBONATE/VITAMIN D3 1 TAB TABLET PO SCH (08:26)
[2019-12-01] MEDS: METOPROLOL SUCCINATE 50 MG TAB.SR.24H (TOPROL XL) PO SCH (08:26)
[2019-12-01] MEDS: ATORVASTATIN 20 MG TABLET PO SCH (08:26)
[2019-12-01] MEDS: MULTIVITAMINS TAB 1 TABLET PO SCH (08:26)
[2019-12-01] MEDS: THIAMINE HCL 100 MG TABLET PO SCH (08:27)
--- NOTE | 2019-12-01 08:32 | NUR ---
AM SCHEDULE MED GIVEN, TOLERATED WELL.
[2019-12-01] MEDS: ASCORBIC ACID 500 MG TABLET PO SCH (08:33)
[2019-12-01] MEDS: PHENAZOPYRIDINE HCL 100 MG TABLET PO SCH ×2 (08:47→23:06)
[2019-12-01] MEDS: BALSAM PERU/CASTOR OIL 60 GM OINT...G. TP SCH (08:47)
--- NOTE | 2019-12-01 11:00 | NUR ---
ROUND Patient resting in the bed with eyes closed. No acute distress. Safety measure maintained. Call light within reached. Bed locked in low position, side rails up, bed alarm on. Continue to monitor.
--- NOTE | 2019-12-01 12:20 | NUR ---
LUNCH Patient sitting in upright position and eating lunch. Aspiration precaution maintained. Safety measure maintained. Call light within reached. Continue to monitor.
[2019-12-01 12:29] VITALS: BP_SYST 97
--- NOTE | 2019-12-01 14:05 | NUR ---
ROUND Patient resting in the bed. No acute distress. Safety measure maintained. Call light within reached. Bed locked in low position, side rails up, bed alarm on. Continue to monitor.
--- NOTE | 2019-12-01 16:22 | NUR ---
SLEEPING Patient sleeping in the bed. No acute distress. Safety measure maintained. Call light within reached. Bed locked in low position, side rails up, bed alarm on. Continue to monitor.
[2019-12-01 16:35] VITALS: BP_SYST 107
[2019-12-01] MEDS: cefTRIAXone 1 GM in D5W 50 ML IV SCH (17:22)
--- NOTE | 2019-12-01 17:31 | NUR ---
Nutrition F/U RD reviewed pt's current EMR record including diet Hx, physician notes, nursing notes, pertinent labs/meds/procedures, care trends, and care activity. Admission Dx: Sepsis, UTI PMH: PVD, acute respiratory failure, CHF, COPD w/ exacerbation, atr fibr, CAD, HTN, DM, alcohol abuse per physician notes Current Diet Order/Nutrition Support: Regular, Ensure Enlive BID, Panfilo BID x2 days Subjective Info: Pt seen resting in bed, seemingly confused. Evidence of Ensure Enlive 100% consumed on bedside table. Bedscale wt taken: 167#; difference of 7# compared to admission wt -- may be inaccurate. RN reported that pt is tolerating diet well, no pending plans/procedures. Current diet remains appropriate, though pt is not yet meeting optimal nutritional needs. Skin Integrity Comment: Jackson scale: 15; per Therapist Respiratory note 11/29/19: 1. Right Buttock near Ischium: Unstageable pressure ulcer, present on admission. 2. Right Mid Lateral Lower Extremity: Unstageable pressure ulcer, present on admission. 3. Right Lateral Foot: Unstageable pressure ulcer, present on admission. 4. Left Lateral Foot: Blanchable erythema, present on admission. 5. Left Lateral Heel: Blanchable erythema, present on admission. Current % PO 18% average x2 meals, x1 refusal. Estimated Energy Expenditure (kcals/day) 4081-6246 kcal/day (30-35 kcal/kg CBW for sepsis, wound healing) Estimated Protein Required (g/day) 119-158 gm/day (1.5-2 gm/kg CBW for wound healing) Estimated Fluid Required (l/day) Per physician d/t CHF Problem/Etiology/Signs/Symptoms Increased nutritional needs related to metabolic demands as evidenced by estimated nutritional requirements for wound healing and elevated WBC. *ongoing Expected Outcomes/Goals - Monitor appetite and PO intakes w/ goal of pt meeting at least 75% of estimated nutritional needs, labs trending WNL, normal GI function, and skin integrity/wt maintenance Dietitian Recommendations * Recommend continuing regular diet w/ Ensure Enlive BID, Panfilo BID (supplements provide an additional ~880 kcal/day, 45 gm protein/day) * Encourage increase PO intakes Follow Up High Risk: F/U in 2-3 days
--- NOTE | 2019-12-01 17:34 | NUR ---
Dietitian Recommendations * Recommend continuing regular diet w/ Ensure Enlive BID, Panfilo BID (supplements provide an additional ~880 kcal/day, 45 gm protein/day) * Encourage increase PO intakes LP, RD Please refer to Nutrition F/U for details.
--- NOTE | 2019-12-01 17:58 | NUR ---
SEEN AND EXAMINED BY DR. DWYER'S LIME MIXER TENDER,SRINIVASA YOUNGER WITH ORDER RECEIVED.
--- NOTE | 2019-12-01 18:54 | NUR ---
CLOSING NOTE Patient resting in the bed with eyes closed. No acute distress. Skin warm and dry to touch. Midline intact to SUSANA, no redness, no swelling, covered with clean and dry transparent dressing. Infusing Vancomycin at this time. All needs met. No seizure activity noted during shift. Safety measure maintained. Bed locked in low position, padded side rails up, bed alarm on. Call light within reached. Will endorse to night nurse.
[2019-12-01 19:40] VITALS: BP_SYST 105
--- NOTE | 2019-12-01 19:40 | NUR ---
INITIAL NOTES PATIENT IS LAYING IN BED AND STABLE. NO S/S OF RESPIRATORY DISTRESS NOTED. CALL LIGHT IN REACH. BED IS LOCKED, ALARMED, AND AT THE LOWEST POSITION. FALL, SAFETY, ASPIRATION, CONTACT, AND RESPIRATORY PRECAUTIONS WILL BE PLACE THROUGHOUT THE SHIFT. PATIENT UNSUCCESSFULLY DEMONSTRATES USAGE OF CALL LIGHT AT THIS TIME. WILL CONTINUE TO MONITOR FREQUENTLY. PLAN OF CARE IS DISCUSSED AT THIS TIME WITH THE PATIENT. PATIENT VERBALIZES NO PAIN.
--- NOTE | 2019-12-01 21:40 | NUR ---
ROUNDING PATIENT IS SLEEPING. PATIENT IS STABLE. NO S/S OF RESPIRATORY DISTRESS NOTED. CALL LIGHT IN REACH. BED IS LOCKED AND AT THE LOWEST POSITION. WILL CONTINUE TO MONITOR.
[2019-12-01] MEDS: QUEtiapine FUMARATE 25 MG TABLET PO SCH (23:05)
[2019-12-01] MEDS: MIRTAZAPINE 15 MG TABLET PO SCH (23:06)
--- NOTE | 2019-12-01 23:40 | NUR ---
ROUNDING PATIENT HAD A URINE AND BOWEL MOVEMENT AT THIS TIME. PATIENT IS INCONTINENT. LINENS WERE CHANGED AND PATIENT WAS CLEANED. PATIENT WAS REPOSITION FOR COMFORT. BED IS LOCKED, ALARMED, AND AT THE LOWEST POSITION. WILL CONTINUE TO MONITOR.
[2019-12-02 00:24] VITALS: BP_SYST 104
[2019-12-02 01:40] VITALS: BP_SYST 110
--- NOTE | 2019-12-02 01:46 | NUR ---
DR. LLOYD BY BEDSIDE DR. LLOYD BY BEDSIDE. AWARE OF SEVERE SEPSIS RISK. NO NEW ORDERS GIVEN.
[2019-12-02] MEDS: VANCOMYCIN HCL 1,000 MG in NS 250 ML IV SCH ×2 (05:15→18:59)
--- NOTE | 2019-12-02 05:40 | NUR ---
ROUNDING PATIENT IS SLEEPING AND STABLE. NO S/S OF RESPIRATORY DISTRESS. CALL LIGHT IN REACH. BED IS LOCKED, ALARMED, AND AT THE LOWEST POSITION. WILL CONTINUE TO MONITOR.
--- NOTE | 2019-12-02 06:01 | NUR ---
CLOSING NOTES PATIENT WAS CHANGED AND CLEANED AT THIS TIME. PATIENT TOLERATED WELL. PATIENT ASSISTED TO TURN. PATIENT WAS REPOSITION FOR COMFORT. PATIENT REFUSED PILLOW ON THE HEAD. PATIENT IS STABLE AND SHOWS NO S/S OF RESPIRATORY DISTRESS. CALL LIGHT IN REACH. BED IS LOCKED, ALARMED, AND AT THE LOWEST POSITION. FALL, SAFETY, ASPIRATION, AND RESPIRATORY PRECAUTIONS WAS PLACED THROUGHOUT THE SHIFT. WILL CONTINUE TO MONITOR UNTIL SHIFT REPORT IS GIVEN TO AM NURSE BY BEDSIDE. Addendum: 12/02/19 at 0627 by Polina Bernardo RN FALL, SAFETY, ASPIRATION,CONTACT AND RESPIRATORY PRECAUTIONS WAS PLACED THROUGHOUT THE SHIFT.
[2019-12-02 07:23] LABS: BASOPHILS # (AUTO) 0.2 K/uL (0.0-0.2); EOSINOPHILS # (AUTO) 0.1 K/uL (0.0-0.4); EOSINOPHILS % (AUTO) 0.8 % (0.0-4.0); HEMATOCRIT 26.9 % (36-54); HEMOGLOBIN 8.7 g/dL (14.0-18.0); LYMPHOCYTES # (AUTO) 1.6 K/uL (1.0-5.5); LYMPHOCYTES % (AUTO) 9.4 % (20.5-51.5); MEAN CORPUSCULAR HEMOGLOBIN 30 pg (27-31); MEAN CORPUSCULAR HGB CONC 32 % (32-36); MEAN CORPUSCULAR VOLUME 92 fL (79.0-98.0); MONOCYTES # (AUTO) 1.1 K/uL (0.0-1.0); MONOCYTES % (AUTO) 6.6 % (1.7-9.3); NEUTROPHILS # (AUTO) 13.8 K/uL (1.8-7.7); NEUTROPHILS % (AUTO) 82.2 % (40.0-70.0); PLATELET COUNT (AUTO) 687 K/uL (130-430); RED BLOOD CELL COUNT(AUTO) 2.93 MIL/uL (4.2-6.2); RED CELL DISTRIBUTION WIDTH 16.1 % (9.0-15.0); WHITE BLOOD COUNT (AUTO) 16.8 K/uL (4.8-10.8)
[2019-12-02 07:30] LABS: INR 2.4 (0.80-1.20); PROTHROMBIN TIME 23.8 SECS (9.5-12.5)
[2019-12-02 07:50] VITALS: BP_SYST 94
[2019-12-02] MEDS: METOPROLOL SUCCINATE 50 MG TAB.SR.24H (TOPROL XL) PO SCH (09:00)
[2019-12-02] MEDS: FERROUS SULFATE 300 MG/5 ML UDC PO SCH ×2 (10:01→21:00)
[2019-12-02] MEDS: POTASSIUM CHLORIDE 20 MEQ TAB.PRT.SR PO SCH ×2 (10:02→21:24)
[2019-12-02] MEDS: CALCIUM CARBONATE/VITAMIN D3 1 TAB TABLET PO SCH (10:02)
[2019-12-02] MEDS: PANTOPRAZOLE SODIUM 40 MG TAB PO SCH (10:02)
[2019-12-02] MEDS: AZITHROMYCIN 250 MG TABLET PO SCH (10:02)
[2019-12-02] MEDS: PHENAZOPYRIDINE HCL 100 MG TABLET PO SCH ×2 (10:02→21:24)
[2019-12-02] MEDS: ATORVASTATIN 20 MG TABLET PO SCH (10:03)
[2019-12-02] MEDS: ASCORBIC ACID 500 MG TABLET PO SCH (10:03)
[2019-12-02] MEDS: levETIRAcetam 500 MG TABLET PO SCH ×2 (10:03→21:24)
[2019-12-02] MEDS: MULTIVITAMINS TAB 1 TABLET PO SCH (10:03)
[2019-12-02] MEDS: THIAMINE HCL 100 MG TABLET PO SCH (10:03)
[2019-12-02] MEDS: ASPIRIN 81 MG TABLET(ECOTRIN) PO SCH (10:03)
[2019-12-02] MEDS: BALSAM PERU/CASTOR OIL 60 GM OINT...G. TP SCH (10:04)
--- NOTE | 2019-12-02 10:05 | NUR ---
AM SCHEDULE MED GIVEN, TOLERATED WELL.
--- NOTE | 2019-12-02 11:55 | NUR ---
ROUND Patient resting in the bed with eyes closed. No acute distress. Safety measure maintained. Call light within reached. Bed locked in low position, padded side rails up, bed alarm on. Continue to monitor.
[2019-12-02 12:00] VITALS: BP_SYST 98
--- NOTE | 2019-12-02 13:45 | NUR ---
ROUND Patient resting in the bed with eyes closed. No acute distress. Safety measure maintained. Bed locked in low position, padded side rails up, bed alarm on. Call light within reached. Continue to monitor.
--- NOTE | 2019-12-02 15:25 | NUR ---
SLEEPING Patient sleeping in the bed. No acute distress. Safety measure maintained. Bed locked in low position, padded side rails up, bed alarm on. Call light within reached. Continue to monitor.
[2019-12-02 16:00] VITALS: BP_SYST 106
--- NOTE | 2019-12-02 16:43 | NUR ---
PAGED PAGED ERIN OBRIEN AT [phone] SPOKE WITH STEFAN.
[2019-12-02] MEDS: cefTRIAXone 1 GM in D5W 50 ML IV SCH (17:43)
--- NOTE | 2019-12-02 17:50 | NUR ---
ERIN JOHNSON STILL NOT CALL BACK YET Dr. Cheng still not shi back yet regarding the positive blood culture, MRSA. Reviewed the blood culture, Vancomycin is sensitive which is the patient receiving. Know that Dr. Cheng will make round at night. Will endorse to follow up.
[2019-12-02] MEDS ORDERED: WARFARIN SODIUM 1 MG TABLET PO SCH (18:00)
--- NOTE | 2019-12-02 18:59 | NUR ---
CLOSING NOTE Patient resting in the bed with eyes closed. No acute distress. Skin warm and dry to touch. Midline intact to SUSANA, no redness, no swelling, covered with clean and dry transparent dressing. Infusing Vancomycin at this time. All needs met. No seizure activity noted during shift. Safety measure maintained. Bed locked in low position, padded side rails up, bed alarm on. Call light within reached. Dr. Cheng still not called back at this time. Will endorse to night nurse.
[2019-12-02 19:35] VITALS: BP_SYST 113
--- NOTE | 2019-12-02 19:35 | NUR ---
INITIAL NOTES PATIENT IS LAYING IN BED AND STABLE. NO S/S OF RESPIRATORY DISTRESS NOTED. PATIENT UNSUCCESSFULLY DEMONSTRATES USAGE OF CALL LIGHT AT THIS TIME. WILL CONTINUE TO MONITOR FREQUENTLY. BED IS LOCKED, ALARMED, AND AT THE LOWEST POSITION. FALL, SAFETY, ASPIRATION, RESPIRATORY, AND CONTACT PRECAUTIONS WILL BE IN PLACE THROUGHOUT THE SHIFT. WILL CONTINUE TO MONITOR.
--- NOTE | 2019-12-02 20:07 | NUR ---
NIKOS BERNABE IS BY BEDSIDE. EDITOR BOOK MADE AWARE OF MDRO OF URINE AND MRSA OF BLOOD. NO ORDERS GIVEN.
--- NOTE | 2019-12-02 20:30 | NUR ---
DR Breezy LLOYD PAGED TO NOTIFY MRSA IN BLOOD PER PRIMARY RN REQUEST .
--- NOTE | 2019-12-02 21:16 | NUR ---
DR Claudia RAMIRES PAGED AGAIN TO NOTIFY THE MRSA IN BLOOD , PER PRIMARY NURSE REQUEST
[2019-12-02] MEDS: MIRTAZAPINE 15 MG TABLET PO SCH (21:24)
[2019-12-02] MEDS: QUEtiapine FUMARATE 25 MG TABLET PO SCH (21:25)
--- NOTE | 2019-12-02 21:35 | NUR ---
PATIENT REFUSED MEDICATION, FERROUS SULFATE, DESPITE EDUCATIONAL EFFORTS. WILL CONTINUE TO EDUCATE. PATIENT WAS ALSO CLEANED AND REPOSITION AT THIS TIME. CALL LIGHT IN REACH. BED IS LOCKED, ALARMED, AND AT THE LOWEST POSITION. WILL CONTINUE TO MONITOR.
--- NOTE | 2019-12-02 22:07 | NUR ---
PATIENT IS SLEEPING IN BED AND STABLE. NO S/S OF RESPIRATORY DISTRESS NOTED. CALL LIGHT IN REACH. BED IS LOCKED, ALARMED, AND AT THE LOWEST POSITION. WILL CONTINUE TO MONITOR.
--- NOTE | 2019-12-02 22:51 | NUR ---
DR. Breezy LLOYD CALLED BACK DR. Breezy LLOYD MADE AWARE OF MRSA IN BLOOD. NO NEW ORDERS GIVEN.
[2019-12-03 00:12] VITALS: BP_SYST 119
--- NOTE | 2019-12-03 04:07 | NUR ---
WOUND CARE PERFORMED AT THIS TIME. PATIENT IS CHANGED AND CLEANED. PATIENT TOLERATED WELL. PATIENT REPOSITION FOR COMFORT. PATIENT IS STABLE. NO S/S OF RESPIRATORY DISTRESS NOTED. CALL LIGHT IN REACH. BED IS LOCKED, ALARMED, AND AT THE LOWEST POSITION. WILL CONTINUE TO MONITOR UNTIL REPORT IS GIVEN TO AM NURSE BY BEDSIDE.
[2019-12-03] MEDS: VANCOMYCIN HCL 1,000 MG in NS 250 ML IV SCH ×2 (05:14→18:35)
--- NOTE | 2019-12-03 06:07 | NUR ---
CLOSING NOTES PATIENT IS STABLE AND IN BED. NO S/S OF RESPIRATORY DISTRESS NOTED. CALL LIGHT IN REACH. BED IS LOCKED, ALARMED, AND AT THE LOWEST POSITION. CALLED PHARMACY TO CLARIFY VANCO TROUGH AND ADMINISTRATION OF MEDICATION. PHARMACY APPROVED. FALL, SAFETY, ASPIRATION, CONTACT, AND RESPIRATORY PRECAUTIONS HAS BEEN IN PLACE THROUGHOUT THE SHIFT. WILL CONTINUE TO MONITOR UNTIL REPORT IS GIVEN TO AM NURSE BY BEDSIDE.
[2019-12-03 06:19] LABS: INR 1.9 (0.80-1.20)
[2019-12-03 06:40] LABS: ALBUMIN 1.4 g/dL (3.4-4.8); BASOPHILS # (AUTO) 0.1 K/uL (0.0-0.2); BASOPHILS % (AUTO) 0.4 % (0.0-2.0); CALCIUM 8.2 mg/dL (8.4-11.0); CREATININE 0.75 mg/dL (0.55-1.30); EOSINOPHILS # (AUTO) 0.1 K/uL (0.0-0.4); HEMATOCRIT 24.2 % (36-54); HEMOGLOBIN 7.8 g/dL (14.0-18.0); LYMPHOCYTES # (AUTO) 1.7 K/uL (1.0-5.5); LYMPHOCYTES % (AUTO) 11.8 % (20.5-51.5); MEAN CORPUSCULAR HEMOGLOBIN 30 pg (27-31); MEAN CORPUSCULAR HGB CONC 32 % (32-36); MEAN CORPUSCULAR VOLUME 92 fL (79.0-98.0); MONOCYTES % (AUTO) 7.2 % (1.7-9.3); NEUTROPHILS # (AUTO) 11.3 K/uL (1.8-7.7); NEUTROPHILS % (AUTO) 79.6 % (40.0-70.0); PLATELET COUNT (AUTO) 588 K/uL (130-430); POTASSIUM 3.6 mmol/L (3.5-5.1); RED BLOOD CELL COUNT(AUTO) 2.63 MIL/uL (4.2-6.2); RED CELL DISTRIBUTION WIDTH 16.3 % (9.0-15.0); TOTAL BILIRUBIN 0.4 mg/dL (0.0-1.0); WHITE BLOOD COUNT (AUTO) 14.2 K/uL (4.8-10.8)
[2019-12-03] MEDS ORDERED: WARFARIN SODIUM 1 MG TABLET PO SCH (07:30)
--- NOTE | 2019-12-03 08:00 | NUR ---
INITIAL NOTE PT RESTING IN BED, NO ACUTE DISTRESS NOTED, BREATHING EVEN AND UNLABORED. IV SALINE LOCKED. CALL LIGHT WITHIN REACH, BED IN LOW AND LOCKED POSITION WITH BED ALARM ON. ISOLATION PRECAUTIONS IN PLACE.
[2019-12-03] MEDS: PHENAZOPYRIDINE HCL 100 MG TABLET PO SCH ×2 (09:46→20:08)
[2019-12-03] MEDS: FERROUS SULFATE 300 MG/5 ML UDC PO SCH ×2 (09:46→20:16)
[2019-12-03] MEDS: ASPIRIN 81 MG TABLET(ECOTRIN) PO SCH (09:48)
[2019-12-03] MEDS: ASCORBIC ACID 500 MG TABLET PO SCH (09:48)
[2019-12-03] MEDS: THIAMINE HCL 100 MG TABLET PO SCH (09:48)
[2019-12-03] MEDS: AZITHROMYCIN 250 MG TABLET PO SCH (09:48)
[2019-12-03] MEDS: BALSAM PERU/CASTOR OIL 60 GM OINT...G. TP SCH (09:49)
[2019-12-03] MEDS: METOPROLOL SUCCINATE 50 MG TAB.SR.24H (TOPROL XL) PO SCH (09:49)
[2019-12-03] MEDS: MULTIVITAMINS TAB 1 TABLET PO SCH (09:49)
[2019-12-03] MEDS: POTASSIUM CHLORIDE 20 MEQ TAB.PRT.SR PO SCH ×2 (09:49→20:08)
[2019-12-03] MEDS: PANTOPRAZOLE SODIUM 40 MG TAB PO SCH (09:49)
[2019-12-03] MEDS: levETIRAcetam 500 MG TABLET PO SCH ×2 (09:49→20:09)
[2019-12-03] MEDS: CALCIUM CARBONATE/VITAMIN D3 1 TAB TABLET PO SCH (09:49)
[2019-12-03] MEDS: ATORVASTATIN 20 MG TABLET PO SCH (09:49)
--- NOTE | 2019-12-03 10:30 | NUR ---
RN ROUNDS/DR. YULIYA MCDONALD AT BEDSIDE EXAMINING PT. INFORMED MD THAT PT IS MORE CONFUSED AND AGITATED, LACKS ORAL INTAKE AND SPITS UP MEDICATION. NEW ORDERS RECEIVED FOR PSYCH CONSULT, AND CBC, CMP. VERIFIED WITH READ BACK.
--- NOTE | 2019-12-03 10:50 | NUR ---
Psych consult called: for Dr. Diaz, regarding confusion, requested by Dr. Louis, spoke with
--- NOTE | 2019-12-03 10:57 | NUR ---
face sheet faxed to office of Dr. Diaz. [phone]
--- NOTE | 2019-12-03 11:44 | NUR ---
RN ROUNDS/Breezy JOHNSON MD AT BEDSIDE EXAMINING PT. INFORMED MD PT IS MORE CONFUSED AND SPIT OUT MEDICATIONS GIVEN ORALLY. NEW ORDERS PUT IN BY MD, BLOOD CULTURE REPEAT AND CARDIO CONSULT TO R/O ENDOCARDITIS. VERIFIED WITH READ BACK.
--- NOTE | 2019-12-03 11:51 | NUR ---
Cardiac consult called: for Dr. Cleveland, regarding rule out endocarditis, ordered by Breezy Cervantes, spoke with Bam.
[2019-12-03 12:35] VITALS: BP_SYST 106
--- NOTE | 2019-12-03 13:30 | NUR ---
RN ROUNDS PER CHOIR ACCOMPANIST, PT REFUSING TO EAT. ATTEMPTED TO ASSIST FEEDING PT AGAIN, PT REFUSING. WILL REATTEMPT LATER.
--- NOTE | 2019-12-03 15:33 | NUR ---
RN ROUNDS PT RESTING IN BED, NO ACUTE DISTRESS NOTED, BREATHING EVEN AND UNLABORED.
[2019-12-03 16:37] VITALS: BP_SYST 113
[2019-12-03] MEDS: cefTRIAXone 1 GM in D5W 50 ML IV SCH (17:20)
--- NOTE | 2019-12-03 17:30 | NUR ---
RN ROUNDS PT RESTING, NO ACUTE DISTRESS NOTED, BREATHING EVEN AND UNLABORED.
--- NOTE | 2019-12-03 18:00 | NUR ---
WOUND CARE/INCONTINENT PT INCONTINENT OF BOWEL, CHANGED PT. WOUND CARE DONE ON SACRUM. REFER TO [facility] FOR TREATMENT. PT TOLERATED WELL. NO ACUTE DISTRESS NOTED DURING OR AFTER.
[2019-12-03 19:35] VITALS: BP_SYST 119
--- NOTE | 2019-12-03 19:38 | NUR ---
CLOSING NOTE PT RESTING IN BED, NO ACUTE DISTRESS NOTED, BREATHING EVEN AND UNLABORED. CALL LIGHT WITHIN REACH, BED IN LOW AND LOCKED POSITION WITH BED ALARM ON. SEIZURE PADS IN PLACE. ISOLATION PRECAUTIONS IN PLACE. PT CARE ENDORSED TO ROLLS MILL OPERATOR RN.
--- NOTE | 2019-12-03 19:40 | NUR ---
INITIAL NOTES PATIENT IS STABLE AND LAYING IN THE BED. NO S/S OF RESPIRATORY DISTRESS NOTED. CALL LIGHT IN REACH. BED IS LOCKED, ALARMED, AND AT THE LOWEST POSITION. FALL,SAFETY, ASPIRATION, CONTACT, AND RESPIRATORY PRECAUTIONS WILL BE IN PLACE THROUGHOUT THE SHIFT. PLAN OF CARE IS DISCUSSED WITH PATIENT AT THIS TIME. WILL CONTINUE TO MONITOR. Addendum: 12/04/19 at 0446 by Polina Bernardo RN SEIZURE PRECAUTIONS WILL BE IN PLACE THROUGHOUT THE SHIFT
[2019-12-03] MEDS: MIRTAZAPINE 15 MG TABLET PO SCH (20:09)
[2019-12-03] MEDS: QUEtiapine FUMARATE 25 MG TABLET PO SCH (20:09)
--- NOTE | 2019-12-03 20:28 | NUR ---
DR. ROBERSON AT BEDSIDE AT THIS TIME.
--- NOTE | 2019-12-03 20:30 | NUR ---
PATIENT REFUSED WOUND CARE AT THIS TIME. DESPITE EDUCATIONAL EFFORT. WILL CONTINUE TO EDUCATE.
--- NOTE | 2019-12-03 21:40 | NUR ---
PATIENT IS CONFUSED AT THIS TIME. REORIENTED PATIENT. PATIENT IS OTHERWISE STABLE. NO S/S OF RESPIRATORY DISTRESS NOTED. CALL LIGHT IN REACH. BED IS LOCKED, ALARMED, AND AT THE LOWEST POSITION. WILL CONTINUE TO MONITOR.
--- NOTE | 2019-12-03 23:40 | NUR ---
PATIENT IS SLEEPING AND STABLE. NO S/S OF RESPIRATORY DISTRESS NOTED. CALL LIGHT IN REACH. BED IS LOCKED, ALARMED, AND AT THE LOWEST POSITION. WILL CONTINUE TO MONITOR.
[2019-12-04 00:22] VITALS: BP_SYST 106; BP_SYST 113
--- NOTE | 2019-12-04 05:00 | NUR ---
WOUND CARE PREFORMED AT THIS TIME. PATIENT TOLERATED WELL.
[2019-12-04] MEDS: VANCOMYCIN HCL 1,000 MG in NS 250 ML IV SCH (06:09)
[2019-12-04 06:40] LABS: BASOPHILS # (AUTO) 0.1 K/uL (0.0-0.2); BASOPHILS % (AUTO) 0.6 % (0.0-2.0); EOSINOPHILS # (AUTO) 0.1 K/uL (0.0-0.4); EOSINOPHILS % (AUTO) 0.9 % (0.0-4.0); HEMATOCRIT 23.3 % (36-54); HEMOGLOBIN 7.6 g/dL (14.0-18.0); LYMPHOCYTES # (AUTO) 1.7 K/uL (1.0-5.5); MEAN CORPUSCULAR HEMOGLOBIN 30 pg (27-31); MEAN CORPUSCULAR HGB CONC 33 % (32-36); MEAN CORPUSCULAR VOLUME 92 fL (79.0-98.0); MONOCYTES % (AUTO) 6.9 % (1.7-9.3); NEUTROPHILS # (AUTO) 11.3 K/uL (1.8-7.7); NEUTROPHILS % (AUTO) 79.6 % (40.0-70.0); PLATELET COUNT (AUTO) 618 K/uL (130-430); RED BLOOD CELL COUNT(AUTO) 2.54 MIL/uL (4.2-6.2); WHITE BLOOD COUNT (AUTO) 14.2 K/uL (4.8-10.8)
[2019-12-04 06:45] LABS: INR 1.7 (0.80-1.20); PROTHROMBIN TIME 17.2 SECS (9.5-12.5)
--- NOTE | 2019-12-04 07:05 | NUR ---
CLOSING NOTES PATIENT IS LAYING. PATIENT IS STABLE. NO S/S OF RESPIRATORY DISTRESS NOTED. CALL LIGHT IN REACH. BED IS LOCKED, ALARMED, AND AT THE LOWEST POSITION. FALL, SAFETY, ASPIRATION, SEIZURE AND RESPIRATORY PRECAUTIONS HAS BEEN IN PLACE THROUGHOUT THE SHIFT. REPORT GIVEN TO MORNING NURSE.
[2019-12-04 07:22] LABS: ALBUMIN 1.5 g/dL (3.4-4.8); CALCIUM 8.5 mg/dL (8.4-11.0); CREATININE 0.75 mg/dL (0.55-1.30); POTASSIUM 3.3 mmol/L (3.5-5.1); TOTAL BILIRUBIN 0.3 mg/dL (0.0-1.0)
[2019-12-04] MEDS ORDERED: WARFARIN SODIUM 2 MG TABLET PO SCH (07:37)
[2019-12-04] MEDS: ASPIRIN 81 MG TABLET(ECOTRIN) PO SCH (09:00)
[2019-12-04] MEDS: ASCORBIC ACID 500 MG TABLET PO SCH (09:00)
[2019-12-04] MEDS: PHENAZOPYRIDINE HCL 100 MG TABLET PO SCH ×2 (09:00→20:11)
[2019-12-04] MEDS: BALSAM PERU/CASTOR OIL 60 GM OINT...G. TP SCH (09:00)
[2019-12-04] MEDS: levETIRAcetam 500 MG TABLET PO SCH ×2 (09:21→20:11)
[2019-12-04] MEDS: ATORVASTATIN 20 MG TABLET PO SCH (09:22)
[2019-12-04] MEDS: POTASSIUM CHLORIDE 20 MEQ TAB.PRT.SR PO SCH ×2 (09:22→20:11)
[2019-12-04] MEDS: MULTIVITAMINS TAB 1 TABLET PO SCH (09:22)
[2019-12-04] MEDS: THIAMINE HCL 100 MG TABLET PO SCH (09:22)
[2019-12-04] MEDS: CALCIUM CARBONATE/VITAMIN D3 1 TAB TABLET PO SCH (09:23)
[2019-12-04] MEDS: FERROUS SULFATE 300 MG/5 ML UDC PO SCH ×2 (09:28→20:11)
[2019-12-04] MEDS: PANTOPRAZOLE SODIUM 40 MG TAB PO SCH (09:30)
[2019-12-04] MEDS: METOPROLOL SUCCINATE 50 MG TAB.SR.24H (TOPROL XL) PO SCH (09:32)
[2019-12-04 12:20] VITALS: BP_SYST 105
--- NOTE | 2019-12-04 13:50 | NUR ---
Nutrition F/U RD reviewed pt's current EMR record including diet Hx, physician notes, nursing notes, pertinent labs/meds/procedures, care trends, and care activity. Admission Dx: Sepsis, UTI PMH: PVD, acute respiratory failure, CHF, COPD w/ exacerbation, atr fibr, CAD, HTN, DM, alcohol abuse per physician notes Current Diet Order/Nutrition Support: Regular, Ensure Enlive BID, Panfilo BID x5 days Subjective Info: Pt seen resting in bed, seemingly confused. Bedscale wt taken: 173# -- possibly skewed d/t linens. Per EMR, pt seems to be eating less -- 10% average x7 meals. Pt is on remeron -- may help w/ appetite. Skin Integrity Comment: Jackson scale: 12; per Legal Financial Specialist note 11/29/19: 1. Right Buttock near Ischium: Unstageable pressure ulcer, present on admission. 2. Right Mid Lateral Lower Extremity: Unstageable pressure ulcer, present on admission. 3. Right Lateral Foot: Unstageable pressure ulcer, present on admission. 4. Left Lateral Foot: Blanchable erythema, present on admission. 5. Left Lateral Heel: Blanchable erythema, present on admission. Current % PO 10% average x7 meals -- poor/negligible, ongoing Estimated Energy Expenditure (kcals/day) 2208-7823 kcal/day (30-35 kcal/kg CBW for sepsis, wound healing) Estimated Protein Required (g/day) 119-158 gm/day (1.5-2 gm/kg CBW for wound healing) Estimated Fluid Required (l/day) Per physician d/t CHF Problem/Etiology/Signs/Symptoms Increased nutritional needs related to metabolic demands as evidenced by estimated nutritional requirements for wound healing and elevated WBC. *ongoing Expected Outcomes/Goals - Monitor appetite and PO intakes w/ goal of pt meeting at least 75% of estimated nutritional needs, labs trending WNL, normal GI function, and skin integrity/wt maintenance Dietitian Recommendations * Recommend continuing regular diet w/ Ensure Enlive BID, Panfilo BID (supplements provide an additional ~880 kcal/day, 45 gm protein/day) * Encourage increase PO intakes Follow Up High Risk: F/U in 2-3 days
--- NOTE | 2019-12-04 14:15 | NUR ---
Note Received report from Yue FIGUEROA (registry) for continuation of care. Pt now on tele unit - applied by Su FIGUEROA at this time.
[2019-12-04] MEDS: cefTRIAXone 1 GM in D5W 50 ML IV SCH (16:33)
[2019-12-04 16:40] VITALS: BP_SYST 109
--- NOTE | 2019-12-04 18:30 | NUR ---
Note Pt was assisted in eating his dinner. No SOB/resp distress or pain/discomfort noted at this time. Pt was checked on q1' and PRN all shift for needs and care. SUSANA midline intact and patent at this time. No needs noted at this time. Call light within reach. Dressings on lower extremities, intact and clean at this time.
--- NOTE | 2019-12-04 19:30 | NUR ---
OPENING NOTE PT IS AWAKE AND CONFUSED. PT ABLE TO VERBALIZE NEEDS IN GERMAN. NO S/S OF ACUTE DISTRESS. BREATHING IS UNLABORED TO ROOM AIR. PT DENIES PAIN AT THIS TIME. SAFETY AND FALL PRECAUTIONS ARE IN PLACE: BED IS LOCKED IN LOWEST POSITION, SIDE RAILS UP X3, CALL LIGHT IS WITH PT, BED ALARM ON. WILL CONTINUE TO MONITOR.
[2019-12-04 20:00] VITALS: BP_SYST 110
[2019-12-04] MEDS: MIRTAZAPINE 15 MG TABLET PO SCH (20:11)
[2019-12-04] MEDS: QUEtiapine FUMARATE 25 MG TABLET PO SCH (20:11)
[2019-12-04] MEDS: VANCOMYCIN HCL 750 MG/NS 250 ML IV SCH (20:12)
--- NOTE | 2019-12-04 20:12 | NUR ---
MEDICATION PASS SCHEDULED MEDICATIONS ADMINISTERED ORDERED. MEDICATIONS EXPLAINED TO PT, PT CONFUSED. SAFETY, SEIZURE, CONTACT, AND ASPIRATION PRECAUTIONS ARE IN PLACE. WILL CONT TO MONITOR.
[2019-12-05 00:20] VITALS: BP_SYST 111
--- NOTE | 2019-12-05 00:30 | NUR ---
SLEEPING PT APPEARS TO BE SLEEPING IN BED. VISIBLE SYMMETRICAL RISE AND FALL OF CHEST TO ROOM AIR. NO S/S OF ACUTE DISTRESS. PT APPEARS COMFORTABLE. SAFETY, ASPIRATION, CONTACT, AND SEIZURE PRECAUTIONS OBSERVED. WILL MONITOR.
--- NOTE | 2019-12-05 02:45 | NUR ---
RN ROUNDS: PT APPEARS TO BE SLEEPING IN BED. VISIBLE SYMMETRICAL RISE AND FALL OF CHEST TO ROOM AIR. NO S/S OF ACUTE DISTRESS. PT APPEARS COMFORTABLE. SAFETY, ASPIRATION, CONTACT, AND SEIZURE PRECAUTIONS OBSERVED. WILL MONITOR.
--- NOTE | 2019-12-05 04:21 | NUR ---
SLEEPING PT APPEARS TO BE SLEEPING IN BED. VISIBLE SYMMETRICAL RISE AND FALL OF CHEST TO ROOM AIR. NO S/S OF ACUTE DISTRESS. PT APPEARS COMFORTABLE AT THIS TIME. SAFETY, ASPIRATION, CONTACT, AND SEIZURE PRECAUTIONS OBSERVED. WILL MONITOR.
--- NOTE | 2019-12-05 05:00 | NUR ---
INCONTINENCE CARE/WOUND CARE PT INCONTINENT OF BOWELS AND BLADDER. PT CLEANED AND PROVIDED WITH FRESH LINEN. WOUND CARE PERFORMED AT THIS TIME. PATIENT TOLERATED WELL. PHOTOS TAKEN. PT REPOSITIONED FOR COMFORT. SAFETY AND SEIZURE PRECAUTIONS MAINTAINED. WILL MONITOR.
--- NOTE | 2019-12-05 06:53 | NUR ---
CLOSING NOTE PATIENT IS RESTING IN BED, PATIENT IS STABLE. NO S/S OF RESPIRATORY DISTRESS NOTED. CALL LIGHT IN REACH. BED IS LOCKED, ALARMED, AND AT THE LOWEST POSITION. FALL, SAFETY, ASPIRATION, SEIZURE PRECAUTIONS HAVE BEEN IN PLACE THROUGHOUT THE SHIFT. WILL ENDORSE PT CARE TO DAY SHIFT RN.
[2019-12-05 07:14] LABS: INR 1.9 (0.80-1.20)
[2019-12-05 08:00] VITALS: BP_SYST 159
--- NOTE | 2019-12-05 08:00 | NUR ---
Opening note patient resting in bed, a/ox1- reoriented to place, time and event, patient denies pain, attempted to educate him production line welder light system, patient is irritable at this time, PICC line and peripheral IV are patent no s/s infiltration, continuing to monitor patient, bed in lowest position, three side rails up, bed alarm on, bed close to nursing station, fall, aspiration, seizure and isolation precautions in place.
[2019-12-05] MEDS: THIAMINE HCL 100 MG TABLET PO SCH (08:33)
[2019-12-05] MEDS: ASCORBIC ACID 500 MG TABLET PO SCH (08:33)
[2019-12-05] MEDS: MULTIVITAMINS TAB 1 TABLET PO SCH (08:36)
[2019-12-05] MEDS: CALCIUM CARBONATE/VITAMIN D3 1 TAB TABLET PO SCH (08:37)
[2019-12-05] MEDS: PANTOPRAZOLE SODIUM 40 MG TAB PO SCH (08:37)
[2019-12-05] MEDS: levETIRAcetam 500 MG TABLET PO SCH ×2 (08:37→20:21)
[2019-12-05] MEDS: PHENAZOPYRIDINE HCL 100 MG TABLET PO SCH ×2 (08:37→20:22)
[2019-12-05] MEDS: ATORVASTATIN 20 MG TABLET PO SCH (08:37)
[2019-12-05] MEDS: POTASSIUM CHLORIDE 20 MEQ TAB.PRT.SR PO SCH ×2 (08:37→20:19)
[2019-12-05] MEDS: ASPIRIN 81 MG TABLET(ECOTRIN) PO SCH (08:38)
[2019-12-05] MEDS: FERROUS SULFATE 300 MG/5 ML UDC PO SCH ×2 (08:38→20:19)
--- NOTE | 2019-12-05 08:40 | NUR ---
Medication/Dr. Clevleand rounds patient resting in bed, denies pain, able to only answer a few question from Dr. Cleveland. Administered AM scheduled medications to patient, crushed and with applesauce, he tolerated well, gave patient water per his request, aspiration precautions in place, continuing to monitor patient, bed in lowest position, three side rails up, bed alarm on, bed close to nursing station, fall, seizure and isolation precautions in place.
[2019-12-05] MEDS: METOPROLOL SUCCINATE 50 MG TAB.SR.24H (TOPROL XL) PO SCH (08:57)
[2019-12-05] MEDS: BALSAM PERU/CASTOR OIL 60 GM OINT...G. TP SCH (09:00)
[2019-12-05] MEDS: VANCOMYCIN HCL 750 MG/NS 250 ML IV SCH ×2 (09:04→20:24)
--- NOTE | 2019-12-05 09:05 | NUR ---
Medication/Rounds patient resting in bed, shouting for water, gave him water, aspiration precautions in place, IV antibiotic hung and infusing well, PICC line is intact, no s/s infiltration, continuing to monitor patient, bed in lowest position, three side rails up, bed alarm on, bed close to nursing station, fall, seizure and isolation precautions in place.
--- NOTE | 2019-12-05 10:35 | NUR ---
RN rounds patient resting in bed, eyes closed, breathing is even and unlabored, no signs of distress, easy to wake, turned and repositioned patient, he tolerated well, no other needs at this time, bed in lowest position, three side rails up, bed alarm on, bed close to nursing station, fall, aspiration, seizure and isolation precautions in place.
[2019-12-05 12:00] VITALS: BP_SYST 140
--- NOTE | 2019-12-05 12:00 | NUR ---
RN rounds patient resting in bed, eyes closed, breathing is even and unlabored, no signs of distress, easy to wake, patient refusing lunch at this time, no signs of pain, continuing to monitor, bed in lowest position, three side rails up, bed alarm on, bed close to nursing station, fall, aspiration, seizure and isolation precautions in place.
--- NOTE | 2019-12-05 13:38 | NUR ---
RN rounds patient resting in bed, awake, offered lunch, he agreed, he ate 2 bites of sweet potatoes and refused the rest of the tray, aspiration precautions in place, patient denies pain, continuing to monitor, bed in lowest position, three side rails up, bed alarm on, bed close to nursing station, fall, aspiration, seizure and isolation precautions in place.
[2019-12-05] MEDS: HYDROcodone/ACETAMIN 5-325 MG TAB (NORCO/ VICODIN) PO PRN (14:28)
--- NOTE | 2019-12-05 14:36 | NUR ---
Pain patient shouting,"pain!," inquired where his pain is, he says, "all over," administered PRN pain medication, patient tolerated well, continuing to monitor, bed in lowest position, three side rails up, bed alarm on, bed close to nursing station, fall, aspiration, isolation precautions in place, patient is refusing seizure precautions, throws the seizure pads on the floor.
--- NOTE | 2019-12-05 15:49 | NUR ---
RN rounds patient resting in bed, calmer at this time, cleaned, turned and repositioned the patient with INTERVENTIONAL NURSE, patient tolerated well, patient refusing seizure precautions at this time, continuing to monitor the patient, bed in lowest position, three side rails up, bed alarm on, bed close to nursing station, fall, aspiration and isolation precautions in place.
[2019-12-05 17:20] VITALS: BP_SYST 103
--- NOTE | 2019-12-05 18:06 | NUR ---
RN rounds patient resting in bed, awake, denies pain, refusing to be turned, refusing to eat and refused Coumadin, attempted to educate the patient on need for treatments, patient becoming agitated, continuing to monitor, bed in lowest position, three side rails up, bed alarm on, bed close to nursing station, fall, aspiration, isolation precautions in place, patient is refusing seizure precautions at this time.
--- NOTE | 2019-12-05 18:36 | NUR ---
Closing note patient resting in bed, awake, denies pain, all needs met, will endorse report to NOC shift nurse, bed in lowest position, three side rails up, bed alarm on, bed close to nursing station, fall, isolation, and aspiration precautions in place, patient refusing seizure precautions.
--- NOTE | 2019-12-05 19:30 | NUR ---
NOTES: pt. sleeping when received. on contact isolation for MRSA blood and MDRO urine. on fall risk precautions. will reassess later.bed alrm on, call light at bedside.
[2019-12-05] MEDS: QUEtiapine FUMARATE 25 MG TABLET PO SCH (20:20)
[2019-12-05] MEDS: MIRTAZAPINE 15 MG TABLET PO SCH (20:21)
[2019-12-05 20:30] VITALS: BP_SYST 108
--- NOTE | 2019-12-05 20:30 | NUR ---
NOTES: scheduled meds crushed with apple sauce and tolerated well.VS checked. midline cath on rt. upper arm, IV antibiotic started and regulated. on emergency room clerk and shows atrial fib, controlled rate. noted both lower extremities skin discoloration, dressing on rt. leg and rt. heel.
--- NOTE | 2019-12-05 22:25 | NUR ---
NOTES; pt. still awake, talking inappropriately in another language, unable to understand. IV antibiotic still infusing vai mid line catheter on rt. upper arm. pt. incontinent of urine , niyah care done. Addendum: 12/05/19 at [address] RN had moderate amt. of soft brown stool. sacral wound dressing intact.
[2019-12-05] MEDS: WARFARIN SODIUM 2.5 MG TABLET PO SCH (23:04)
--- NOTE | 2019-12-06 01:00 | NUR ---
NOTES: pt. checked and pt. sleeping. continue to monitor.
[2019-12-06 01:30] VITALS: BP_SYST 117
--- NOTE | 2019-12-06 03:13 | NUR ---
NOTES: condition unchanged, continue to monitor. pt. sleeping when checked.
--- NOTE | 2019-12-06 05:30 | NUR ---
NOTES: pt. incontinent of urine, niyah care done. sacral dressing and rt. buttock dressing changed. repositioned. IV site intact, wrapped securely with kerlix gauze. pt. able to help in turning.
--- NOTE | 2019-12-06 06:29 | NUR ---
CLOSING NOTES; condition unchanged. observed contact isolation for MRSA blood and MDRO urine. mid line cath to rt. upper arm intact. on fall risk precautions and seizure precautions. for further care and assistance. will endorse to day shift. call light at bedside.
[2019-12-06 07:59] LABS: INR 2.1 (0.80-1.20); PROTHROMBIN TIME 20.5 SECS (9.5-12.5)
[2019-12-06] MEDS: THIAMINE HCL 100 MG TABLET PO SCH (08:29)
[2019-12-06] MEDS: ATORVASTATIN 20 MG TABLET PO SCH (08:29)
[2019-12-06] MEDS: ASCORBIC ACID 500 MG TABLET PO SCH (08:30)
[2019-12-06] MEDS: CALCIUM CARBONATE/VITAMIN D3 1 TAB TABLET PO SCH (08:30)
[2019-12-06] MEDS: POTASSIUM CHLORIDE 20 MEQ TAB.PRT.SR PO SCH ×3 (08:30→20:56)
[2019-12-06] MEDS: levETIRAcetam 500 MG TABLET PO SCH ×2 (08:30→20:29)
[2019-12-06] MEDS: PANTOPRAZOLE SODIUM 40 MG TAB PO SCH (08:30)
[2019-12-06] MEDS: MULTIVITAMINS TAB 1 TABLET PO SCH (08:31)
[2019-12-06] MEDS: ASPIRIN 81 MG TABLET(ECOTRIN) PO SCH (08:31)
[2019-12-06] MEDS: FERROUS SULFATE 300 MG/5 ML UDC PO SCH ×3 (08:32→20:56)
[2019-12-06] MEDS: METOPROLOL SUCCINATE 50 MG TAB.SR.24H (TOPROL XL) PO SCH (08:32)
[2019-12-06] MEDS: VANCOMYCIN HCL 750 MG/NS 250 ML IV SCH ×2 (08:34→20:24)
[2019-12-06] MEDS: PHENAZOPYRIDINE HCL 100 MG TABLET PO SCH ×2 (09:00→20:30)
--- NOTE | 2019-12-06 10:21 | NUR ---
DC PLANNING Called & spoke w Dr Louis regarding dc planning. Gave ph order to dc back to SNF if cleared by Dr Cheng. Informed pt's nurse, she is calling Dr Cheng if clear for dc.
--- NOTE | 2019-12-06 10:57 | NUR ---
Discharge Planning: DCP faxed pt referral [facility] (f [phone] p [phone]) DCP to follow up. Addendum: 12/06/19 at 1210 by Isaura Hensley DP DCP followed up with Rohini at [facility] (f [phone] p [phone]) patient bed hold was up, so patient will go to [facility] (f [phone] p [phone]) Marco is in admissions. DCP to follow up. Addendum: 12/06/19 at 1501 by Isaura Hensley DP Multiple calls made to [facility] (f [phone] p [phone]): [phone] Marco not available in meeting 1400 Marco still in meeting 1404 called left laney Murrieta at [facility] (f [phone] p [phone]) to inquire if [facility] had communicated accepting with a room. 1414 Glenny stated she will call [facility] and call back 1433 Marco from [facility] will give pt referral to DON to review. DCP to follow up Addendum: 12/06/19 at 1555 by Isaura Hensley DP Marco from [facility] (f [phone] p [phone]) accepted patient to room 102A. DCP made patient nurse aware the final DC order needed to have the IV medication written with drug,dose and duration. Nurse stated she will call Dr Cheng. Addendum: 12/06/19 at 1751 by Isaura Hensley DP DCP received DC order with IV medication, doctor wants Vanco dose per order by pharmacy, DON has to approve that will not be till tomorrow CM to follow up.
[2019-12-06 12:32] VITALS: BP_SYST 102
[2019-12-06] MEDS: BALSAM PERU/CASTOR OIL 60 GM OINT...G. TP SCH (13:09)
--- NOTE | 2019-12-06 16:33 | NUR ---
DC PLANNING Called & spoke w pt's sister, Olga ph [phone], informed no beds avail today @ [facility] but sister facility able to take pt today @ [facility] room 102A. Per Olga has been @ [facility] before & agreeable w plan. Informed waiting for final dc order from MD. Called & informed pt's nurse, states still waiting or call back from MD for final order.
[2019-12-06 17:13] VITALS: BP_SYST 94
[2019-12-06] MEDS: WARFARIN SODIUM 2.5 MG TABLET PO SCH (17:37)
--- NOTE | 2019-12-06 19:30 | NUR ---
CHANGE OF SHIFT; pt. awake, alert but been yelling , confused and disoriented, unable to understand what he's saying even in Mosotho. observed contact isolation for MRSA blood/MDRO urine. will reassess later. shi dickey at bedside . on fall risk and seizure precautions.
[2019-12-06] MEDS: QUEtiapine FUMARATE 25 MG TABLET PO SCH (20:29)
[2019-12-06] MEDS: MIRTAZAPINE 15 MG TABLET PO SCH (20:29)
[2019-12-06 20:30] VITALS: BP_SYST 137
--- NOTE | 2019-12-06 20:30 | NUR ---
NOTES: pt. still yells, thrown his pillows and side rail pads. still does not understand what he wants. IV site on rt. upper arm with mid line catheter, IV antibiotic infusing. pt. incontinent of urine and stool. both lower extremities with skin discoloration with trace edema. leg and sacral dressing intact, heel dressing came off. pt. pretty stubborn tonight. VS checked. cardia pattern on atrial fib rate 112. condition observed.
--- NOTE | 2019-12-06 21:30 | NUR ---
NOTES: refused some po meds, crushed and mix with apple sauce. niyah care done, incontinent of urine, repositioned. HOB slightly elevated.on room air, no shortness of breath. call light at bedside but does not use it, needs frequent rounds.
--- NOTE | 2019-12-06 23:56 | NUR ---
NOTES: pt. calmer, condition unchanged. repositioned. observed contact isolation.
[2019-12-07 00:14] VITALS: BP_SYST 105
--- NOTE | 2019-12-07 02:00 | NUR ---
NOTES: repositioned, remain sleeping.
--- NOTE | 2019-12-07 04:00 | NUR ---
NOTES: condition unchanged continue to monitor.
--- NOTE | 2019-12-07 05:30 | NUR ---
NOTES: NOTES; pt. awakened for am care, incontinent of urine, niyah care done and repositioned.
--- NOTE | 2019-12-07 06:42 | NUR ---
CLOSING NOTES; pt. went back to sleep, was yelling earlier and saying bad words. for further care and assistance. continue to observe contact isolation. IV site intact ,midline catheter. will endorse to day shift.
[2019-12-07 06:44] LABS: INR 2.4 (0.80-1.20); PROTHROMBIN TIME 23.6 SECS (9.5-12.5)
[2019-12-07] MEDS ORDERED: QUEtiapine FUMARATE 25 MG TABLET PO SCH (09:00)
[2019-12-07] MEDS: VANCOMYCIN HCL 750 MG/NS 250 ML IV SCH (09:26)
[2019-12-07] MEDS: FERROUS SULFATE 300 MG/5 ML UDC PO SCH (11:07)
[2019-12-07] MEDS: ASPIRIN 81 MG TABLET(ECOTRIN) PO SCH (11:07)
[2019-12-07] MEDS: levETIRAcetam 500 MG TABLET PO SCH (11:08)
[2019-12-07] MEDS: PANTOPRAZOLE SODIUM 40 MG TAB PO SCH (11:08)
[2019-12-07] MEDS: CALCIUM CARBONATE/VITAMIN D3 1 TAB TABLET PO SCH (11:08)
[2019-12-07] MEDS: ATORVASTATIN 20 MG TABLET PO SCH (11:08)
[2019-12-07] MEDS: MULTIVITAMINS TAB 1 TABLET PO SCH (11:09)
[2019-12-07] MEDS: POTASSIUM CHLORIDE 20 MEQ TAB.PRT.SR PO SCH (11:09)
[2019-12-07] MEDS: ASCORBIC ACID 500 MG TABLET PO SCH (11:09)
[2019-12-07] MEDS: THIAMINE HCL 100 MG TABLET PO SCH (11:13)
[2019-12-07] MEDS: METOPROLOL SUCCINATE 50 MG TAB.SR.24H (TOPROL XL) PO SCH (11:15)
[2019-12-07] MEDS: BALSAM PERU/CASTOR OIL 60 GM OINT...G. TP SCH (11:19)
[2019-12-07] MEDS: PHENAZOPYRIDINE HCL 100 MG TABLET PO SCH (11:20)
[2019-12-07 12:30] VITALS: BP_SYST 103
--- NOTE | 2019-12-07 16:16 | NUR ---
PER JUNE PEREIRA YESTERDAY, SHE ARRANGED TRANSFER TO [facility]. SPOKE TO CONNOR RN PAPER REWINDER OPERATOR WHO WILL STILL SEEK APPROVAL FROM THEIR DON. AWAITING FOR THE CALL OF [facility]NOR .
[2019-12-07 16:21] VITALS: BP_SYST 105
[2019-12-07 16:30] VITALS: BP_SYST 114
--- NOTE | 2019-12-07 16:42 | NUR ---
WOUND RE-EVALUATION: Patient received in a Daina Bed with a mattress, awake, alert, and oriented. Patient is unable to turn independently. Jackson Score is a 13. Past Medical History: Peripheral Vascular Disease, Acute Respiratory Failure, CHF, COPD with exacerbation, Atrial Fibrillation, CAD, Hypertension, Diabetes Mellitus, history of Alcohol abuse, stent surgery. Recent Labs: WBC 18.4, RBC 2.82, hemoglobin 8.4, hematocrit 25.8, sodium 126, BUN 21, creatinine 0.8, GFR 97, AST 82, ALT 88, alkaline phosphatase 253, albumin 1.5, PT 16.8, INR 1.7. Microbiology: Blood culture results 4 in progress. MRSA screen results in progress. Urine culture results in progress. Intrinsic factors that delay wound healing: Peripheral Vascular Disease, Acute Respiratory Failure, CHF, COPD with exacerbation, CAD, Diabetes Mellitus. Extrinsic factors that delay wound healing: Decreased mobility. Wound Assessment: 1. Right Buttock near Ischium: Unstageable pressure ulcer, present on admission. Wound care performed by mini shifter nurse this morning. Dressing not removed for assessment secondary to doing would decrease wound temperature and retard wound healing rate. Recommend continue: Cleanse wound with normal saline. Apply moisture barrier cream to niyah-wound. Apply Venelex ointment to wound bed. Cover with foam dressing. Perform wound care daily, and as needed for dressing soiling or dislodgement. 2. Right Mid Lateral Lower Extremity: Unstageable pressure ulcer, present on admission. Wound care performed by mini shifter nurse this morning. Dressing not removed for assessment secondary to doing would decrease wound temperature and retard wound healing rate. 3. Right Lateral Foot: Unstageable pressure ulcer, present on admission. Wound care performed by mini shifter nurse this morning. Dressing not removed for assessment secondary to doing would decrease wound temperature and retard wound healing rate. Recommend continue: Cleanse wounds with normal saline. Apply moisture barrier cream to niyah-wounds. Apply Venelex ointment to wound beds. Cover with foam dressings. Perform wound care daily, and as needed for dressing soiling or dislodgement. 4. Left Lateral Foot: Blanchable erythema, present on admission. Extremity also has dark discoloration with white discoloration. Multiple dry scabs present on extremity 5. Left Lateral Heel: Blanchable erythema, present on admission. Extremity also has dark discoloration with white discoloration. Multiple dry scabs present on extremity Recommend continue: Elevate, offload and float involved areas with pillows at all times. Also recommend continue: Reposition patient side to side only every 2 hours with pillow support and off-load pressure areas with pillows for pressure re-distribution. Offload, elevate and float bilateral heels with pillows. Place a pillow in between knees and ankles. Perform skin care and monitor skin integrity Q shift. Use moisture barrier cream on buttocks and other moisture susceptible areas QID and as needed for soiling. Maintain patient on Low air-loss therapy.
--- NOTE | 2019-12-07 17:21 | NUR ---
CONFIRMED WITH [facility], ARMAAN DONOHUE, RN FOOD EXPEDITOR [employer] ROOM ASSIGNMENT 102A. ARRANGED WITH [facility] , BLS TRANSPORT TO [facility] [place], WITH AN AGREEMENT TO BILL THE HOSPITAL DUE TO THE DISTANCE THAT EXCEEDS 25 MILES RANGE BETWEEN THE 2 FACILITIES.. SPOKE TO MORENA. LAND SURVEYOR TIME IS BETWEEN 1815 TO 1830.
--- NOTE | 2019-12-07 17:36 | NUR ---
Nutrition F/U RD reviewed pt's current EMR record including diet Hx, physician notes, nursing notes, pertinent labs/meds/procedures, care trends, and care activity. Admission Dx: Sepsis, UTI PMH: PVD, acute respiratory failure, CHF, COPD w/ exacerbation, atr fibr, CAD, HTN, DM, alcohol abuse per physician notes Current Diet Order/Nutrition Support: Regular, Ensure Enlive BID, Panfilo BID x8 days Subjective Info: Pt seen resting in bed, seemingly confused. Pt continues w/ very poor appetite -- per EMR, PO intake average of 14% x7 meals. Skin Integrity Comment: Jackson scale: 13; per Tanker Driver note 11/29/19: 1. Right Buttock near Ischium: Unstageable pressure ulcer, present on admission. 2. Right Mid Lateral Lower Extremity: Unstageable pressure ulcer, present on admission. 3. Right Lateral Foot: Unstageable pressure ulcer, present on admission. 4. Left Lateral Foot: Blanchable erythema, present on admission. 5. Left Lateral Heel: Blanchable erythema, present on admission. Current % PO 10% average x7 meals -- poor/negligible, ongoing Estimated Energy Expenditure (kcals/day) 9732-9495 kcal/day (30-35 kcal/kg CBW for sepsis, wound healing) Estimated Protein Required (g/day) 119-158 gm/day (1.5-2 gm/kg CBW for wound healing) Estimated Fluid Required (l/day) Per physician d/t CHF Problem/Etiology/Signs/Symptoms Increased nutritional needs related to metabolic demands as evidenced by estimated nutritional requirements for wound healing and elevated WBC. *ongoing Expected Outcomes/Goals - Monitor appetite and PO intakes w/ goal of pt meeting at least 75% of estimated nutritional needs, labs trending WNL, normal GI function, and skin integrity/wt maintenance Dietitian Recommendations * Recommend continuing regular diet w/ Ensure Enlive BID, Panfilo BID (supplements provide an additional ~880 kcal/day, 45 gm protein/day) * Encourage increase PO intakes Follow Up High Risk: F/U in 2-3 days
[2019-12-07] MEDS: WARFARIN SODIUM 2.5 MG TABLET PO SCH (17:38)
--- NOTE | 2019-12-07 18:10 | NUR ---
PATIENT REPORT CALLED IN TO [facility]. PT MIDLINE TO RUE IN PLACE AND INTACT. PT TO REMAIN ON VANCOMYCIN UNTIL 12/18/2019 AND PTD. SISTER, VINAY MCNEIL, NOTIFIED OF TRANSFER
== END 2019-12-07 17:50 | DRG 720 ==
LOC: SED 13:56 → SMU 18:02 → STU 12-04 12:41
PROVIDERS: ADMIT Internal Medicine Nephrology; ATTEND Internal Medicine Nephrology
PROC: B54MZZA Ultrasonography of Right Upper Extremity Veins, Guidance (ICD-10-PCS; 2019-11-27)
PROC: 05HY33Z Insertion of Infusion Device into Upper Vein, Percutaneous Approach (ICD-10-PCS; 2019-11-27)
PROC: 05HY33Z Insertion of Infusion Device into Upper Vein, Percutaneous Approach (ICD-10-PCS; principal; 2019-11-30)
PROC: B54MZZA Ultrasonography of Right Upper Extremity Veins, Guidance (ICD-10-PCS; 2019-11-30)
DX: A41.2 Sepsis due to unspecified staphylococcus (principal); E43 Unspecified severe protein-calorie malnutrition; I48.0 Paroxysmal atrial fibrillation; E11.51 Type 2 diabetes mellitus with diabetic peripheral angiopathy without gangrene; I48.20 Chronic atrial fibrillation, unspecified; I27.20 Pulmonary hypertension, unspecified; I11.0 Hypertensive heart disease with heart failure; I50.9 Heart failure, unspecified; G40.909 Epilepsy, unspecified, not intractable, without status epilepticus; N12 Tubulo-interstitial nephritis, not specified as acute or chronic; E87.1 Hypo-osmolality and hyponatremia; D64.9 Anemia, unspecified; E78.5 Hyperlipidemia, unspecified; F29 Unspecified psychosis not due to a substance or known physiological condition; R65.20 Severe sepsis without septic shock; B96.4 Proteus (mirabilis) (morganii) as the cause of diseases classified elsewhere; I25.10 Atherosclerotic heart disease of native coronary artery without angina pectoris; I87.8 Other specified disorders of veins; J44.9 Chronic obstructive pulmonary disease, unspecified; Z79.01 Long term (current) use of anticoagulants; Z79.82 Long term (current) use of aspirin; Z79.899 Other long term (current) drug therapy; Z86.73 Personal history of transient ischemic attack (TIA), and cerebral infarction without residual deficits; Z95.5 Presence of coronary angioplasty implant and graft; Z88.8 Allergy status to other drugs, medicaments and biological substances
CPT/HCPCS: 36415; 71045; 80053; 80202-TC; 81000-TC; 82140-TC; 82150-TC; 83605; 83690-TC; 83735-TC; 84100-TC; 84439; 84443-TC; 84484; 85007; 85025; 85027; 85610-TC; 85730-TC; 87040-TC; 87081; 87086; 87186-TC; 93005; 93306; 96361; 96365; 99291; G0378; J0696; J3370; J3430; J7050; J7060; Q0144